=== PATIENT | female | born 1950 | race Caucasian/White ===

== ENCOUNTER → 2018-07-01 10:47 | Outpatient (BNVA) | payer MEDICARE, MEDICAID, SELFPAY | PROVIDERS: Referring Provider Orthopaedic Surgery; Visit Provider Student in an Organized Health Care Education/Training Program | DX: M17.12 Unilateral primary osteoarthritis, left knee (principal); M17.11 Unilateral primary osteoarthritis, right knee; M76.892 Other specified enthesopathies of left lower limb, excluding foot | CPT/HCPCS: 99203 ==

== ENCOUNTER 2018-08-13 08:04 | Outpatient (CLI) | payer MEDICARE, MEDICAID, SELFPAY ==
[2018-08-13 10:10] LABS: HCT 39.9 % (36.0-46.0); HGB 13.3 g/dL (12.0-15.5); Mean Corp. HGB Concentration 33.3 g/dL (32.0-36.0); Mean Corpuscular Hemoglobin 30.2 pg (27.0-33.0); Mean Corpuscular Volume 90.5 fL (80-95); Mean Platelet Volume 8.7 fL (8.0-11.0); Platelet Count 343 x1000/uL (130-400); RBC 4.41 m/cumm (4.00-5.20); RBC Distribution Width 13.6 % (11.7-14.6); White Blood Cell Count 5.26 k/cumm (4.4-10.8)
[2018-08-13 10:29] LABS: Anion Gap 9.8 mmol/L (3-11); BUN 14 mg/dL (7-18); CO2 28.2 mmol/L (21.0-32.0); CREATININE 0.72 mg/dL (0.55-1.02); Calcium 9.5 mg/dL (8.5-10.1); Chloride 102 mmol/L (98-107); Glucose 91 mg/dL (70-100); Potassium 4.4 mmol/L (3.5-5.1); Sodium 140 mmol/L (136-145)
== END 2018-08-13 08:24 ==
PROVIDERS: PCP Registered Nurse; Visit Provider Student in an Organized Health Care Education/Training Program
DX: M17.12 Unilateral primary osteoarthritis, left knee (principal); Z01.818 Encounter for other preprocedural examination; Z01.812 Encounter for preprocedural laboratory examination
CPT/HCPCS: 36415; 80048; 85027

== ENCOUNTER 2018-08-13 11:44 | Outpatient (CLI) | payer MEDICARE, SELFPAY ==
--- NOTE | 2018-08-13 09:06 | DI.RAD_ITS ---
SYMPTOMS/DIAGNOSIS: TKA SURG PLANNING LEG LENGTH STUDY: The left leg measures 82 cm. The right leg measures 82 cm. Note is made of degenerative changes in both knees, left more advanced than right.
--- NOTE | 2018-08-13 10:15 | W.PREOPHP ---
Date of service: 08/13/18 Assessment and Plan (1) Left knee DJD: Current visit: No Status: Acute Left total knee replacement. The details of surgery were discussed with patient as well as risks and pertinent today. All questions were answered. It was reiterated again at this visit that there are no guarantees that she will decide flexion that she wants out of this total knee replacement and that this is a procedure primarily done for pain. She appears understand this. Qualifiers: Osteoarthritis type: primary Qualified Code(s): M17.12 - Unilateral primary osteoarthritis, left knee History of Present Illness Chief Complaint: Left knee pain Narrative: Audra is a 68-year-old female who comes in today for a preop visit for her left total knee replacement. She is a very active person who enjoys yoga, and her biggest complaint with her knees, specifically her left knee, is her lack of motion. She is unable to flex her knee as far as the other side now. She also has pain with ambulation whenever she tries to get into specific yoga poses. Most of her knee pain is anterior whenever she is trying, or compromising positions. When she is ambulating most of the knee pain is medially. She has tried conservative treatments including anti-inflammatories and injections. Anti-inflammatories have not helped with her knee pain, and the injections are short-lived and helped mildly. X-rays of her left knee show severe arthritis especially in the patellofemoral joint also and almost complete loss of joint space of the medial compartment. She has bone spurs throughout including posteriorly. She does have a long discussion with Dr. Lee at her previous visit about the postoperative course, and the fact that this procedure is not done for flexibility of her pain. We are hopeful that she will get more flexion back after the procedure, but we cannot guarantee that her flexion will come back. She appears to have understood this in the previous visit, and is anxious to proceed now with a left total knee replacement. Pertinent Surgical Information Audra expresses a desire to not be on narcotics after this total knee replacement. She would like to try other means of pain control if possible. Positive history of Lyme disease. Patient denies history of hypertension, CVA, [place], angina, asthma, COPD, renal or liver disorders, hepatitis, bleeding disorders, diabetes, immune or thyroid disorders. No complications from anesthesia. Review of Systems Constitutional Denies fever(s) ENT Denies dizziness and Denies sore throat Cardiovascular Denies chest pain, Denies palpitations and Denies dyspnea Respiratory Denies cough and Denies dyspnea Gastrointestinal Denies abdominal pain, Denies melena, Denies hematochezia, Denies diarrhea, Denies nausea and Denies vomiting Genitourinary Denies hematuria and Denies dysuria Neurologic Denies dizziness Endocrine Denies palpitations PFS Medical History History of ganglion cyst (Acute) Hyperlipemia (Acute) Lyme disease (Chronic) Surgical History History of bunionectomy (Acute) History of recent maxillofacial surgery (Acute) History of tonsillectomy and adenoidectomy (Acute) History of uvulectomy (Acute) Status post endoscopic carpal tunnel release (Acute) Family History Father Hyperlipidemia Mother Cancer Brother Hypertension Sister Heart disease Social History Smoking/Tobacco Use Status: Never Drug use: Never Meds Home Medications Medication Instructions Recorded Confirmed Type calcium carbonate 600 mg calcium 600 mg PO DAILY tab 08/13/18 08/13/18 History (1,500 mg) tablet cholecalciferol (vitamin D3) 5,000 1,000 unit PO DAILY 08/13/18 08/13/18 History unit/mL oral drops glucosamine 250 kx-gjwht-egu 200 1 tab PO DAILY tab 08/13/18 08/13/18 History mg-D3 1,500 [id number]-V-jaomb-herbs tablet ibuprofen 200 mg PO ONCE PRN 08/13/18 08/13/18 History Allergies Allergy/AdvReac Type Severity Reaction Status Date / Time No Known Allergies Allergy Verified 08/13/18 09:[address] [facility] Head: normocephalic and atraumatic General nose exam: no nasal discharge Throat: posterior oropharynx normal Other: soft palate rises symmetrically, no erythema Eyes Conjunctivae: conjunctivae normal Sclera: sclerae normal Pupils: PERRL Resp Effort & Inspection: normal respiratory effort Auscultation: clear to auscultation bilaterally and no wheezes Cardio Rate: regular rate Rhythm: regular rhythm Heart Sounds: S1 normal, S2 normal and no murmurs GI Palpation: soft, no hepatosplenomegaly and nontender Auscultation: normal bowel sounds
--- NOTE | 2018-08-13 10:23 | HPE_ITS ---
Date of service: 08/13/18 Assessment and Plan (1) Left knee DJD: Current visit: No Status: Acute Left total knee replacement. The details of surgery were discussed with patient as well as risks and pertinent today. All questions were answered. It was reiterated again at this visit that there are no guarantees that she will decide flexion that she wants out of this total knee replacement and that this is a procedure primarily done for pain. She appears understand this. Qualifiers: Osteoarthritis type: primary Qualified Code(s): M17.12 - Unilateral primary osteoarthritis, left knee History of Present Illness Chief Complaint: Left knee pain Narrative: Audra is a 68-year-old female who comes in today for a preop visit for her left total knee replacement. She is a very active person who enjoys yoga, and her biggest complaint with her knees, specifically her left knee, is her lack of motion. She is unable to flex her knee as far as the other side now. She also has pain with ambulation whenever she tries to get into specific yoga poses. Most of her knee pain is anterior whenever she is trying, or compromising positions. When she is ambulating most of the knee pain is medially. She has tried conservative treatments including anti-inflammatories and injections. Anti-inflammatories have not helped with her knee pain, and the injections are short-lived and helped mildly. X-rays of her left knee show severe arthritis especially in the patellofemoral joint also and almost complete loss of joint space of the medial compartment. She has bone spurs throughout including posteriorly. She does have a long discussion with Dr. Lee at her previous visit about the postoperative course, and the fact that this procedure is not done for flexibility of her pain. We are hopeful that she will get more flexion back after the procedure, but we cannot guarantee that her flexion will come back. She appears to have understood this in the previous visit, and is anxious to proceed now with a left total knee replacement. Pertinent Surgical Information Audra expresses a desire to not be on narcotics after this total knee replacement. She would like to try other means of pain control if possible. Positive history of Lyme disease. Patient denies history of hypertension, CVA, [place], angina, asthma, COPD, renal or liver disorders, hepatitis, bleeding disorders, diabetes, immune or thyroid disorders. No complications from anesthesia. Review of Systems Constitutional Denies fever(s) ENT Denies dizziness and Denies sore throat Cardiovascular Denies chest pain, Denies palpitations and Denies dyspnea Respiratory Denies cough and Denies dyspnea Gastrointestinal Denies abdominal pain, Denies melena, Denies hematochezia, Denies diarrhea, Denies nausea and Denies vomiting Genitourinary Denies hematuria and Denies dysuria Neurologic Denies dizziness Endocrine Denies palpitations PFS Medical History History of ganglion cyst (Acute) Hyperlipemia (Acute) Lyme disease (Chronic) Surgical History History of bunionectomy (Acute) History of recent maxillofacial surgery (Acute) History of tonsillectomy and adenoidectomy (Acute) History of uvulectomy (Acute) Status post endoscopic carpal tunnel release (Acute) Family History Father Hyperlipidemia Mother Cancer Brother Hypertension Sister Heart disease Social History Smoking/Tobacco Use Status: Never Drug use: Never Meds Home Medications Medication Instructions Recorded Confirmed Type calcium carbonate 600 mg calcium 600 mg PO DAILY tab 08/13/18 08/13/18 History (1,500 mg) tablet cholecalciferol (vitamin D3) 5,000 1,000 unit PO DAILY 08/13/18 08/13/18 History unit/mL oral drops glucosamine 250 dh-wllan-njj 200 1 tab PO DAILY tab 08/13/18 08/13/18 History mg-D3 1,500 rewo-R-waevh-herbs tablet ibuprofen 200 mg PO ONCE PRN 08/13/18 08/13/18 History Allergies Allergy/AdvReac Type Severity Reaction Status Date / Time No Known Allergies Allergy Verified 08/13/18 09:07 Exam [facility] Head: normocephalic and atraumatic General nose exam: no nasal discharge Throat: posterior oropharynx normal Other: soft palate rises symmetrically, no erythema Eyes Conjunctivae: conjunctivae normal Sclera: sclerae normal Pupils: PERRL Resp Effort & Inspection: normal respiratory effort Auscultation: clear to auscultation bilaterally and no wheezes Cardio Rate: regular rate Rhythm: regular rhythm Heart Sounds: S1 normal, S2 normal and no murmurs GI Palpation: soft, no hepatosplenomegaly and nontender Auscultation: normal bowel sounds
== END 2018-08-13 12:04 ==
PROVIDERS: PCP Registered Nurse; Visit Provider Physician Assistant
DX: M17.12 Unilateral primary osteoarthritis, left knee (principal); Z01.818 Encounter for other preprocedural examination; Z01.812 Encounter for preprocedural laboratory examination
CPT/HCPCS: 36415; 80048; 85027; NC; 77073

== ENCOUNTER → 2018-08-18 08:07 | Outpatient (BNVA) | payer MEDICARE, MEDICAID, SELFPAY | PROVIDERS: PCP Registered Nurse; Visit Provider Student in an Organized Health Care Education/Training Program | DX: R69 Illness, unspecified (principal) ==

== ENCOUNTER 2018-08-18 09:27 | Inpatient (IN) | payer MEDICARE, SELFPAY ==
[2018-08-13 08:31] VITALS: BP 129/82; PULSE 92; RESP 16; TEMP 37.4; O2SAT 96
[2018-08-13 08:38] VITALS: BP 129/82; PULSE 92; RESP 16; TEMP 37.4; O2SAT 96
--- NOTE | 2018-08-13 09:16 | NUR.NOTE ---
Nursing Note: 08/13/18 Pre op visit for Left Total Knee. Care Management text paged without response- pt unable to see care management this morning as part of pre-op visit. Spoke with Darío Solitario CRNA, questioned if pt needed evaluation from [facility] related to previous sleep apnea surgery. Anesthesia declined the need to see pt.
[2018-08-18] VITALS (13 sets, daily range): BP systolic 96–125; BP diastolic 61–83; PULSE 57–84; RESP 10–18; TEMP 36–36.9; O2SAT 94–100
[2018-08-18] MEDS: Gabapentin 300 MG CAP PO (09:57)
[2018-08-18] MEDS: Acetaminophen 500 MG TAB 1000 MG PO ×3 (09:57→19:52)
[2018-08-18] MEDS: Celecoxib 200 MG CAP 400 MG PO (09:57)
[2018-08-18] MEDS: Lactated Ringers 1,000 ML 80 ML IV ×3 (10:00→23:22)
[2018-08-18] MEDS: Bupivacaine 0.25% Pres-Free 30 ML VIAL ×2 (10:18→12:30)
[2018-08-18] MEDS: Bupivacaine LIPOSOME/PF 133 MG/10 ML VIAL IJ ×2 (10:18→12:30)
[2018-08-18] MEDS: ceFAZolin 2 GM/50 ML BAG IVPB (10:59)
[2018-08-18] MEDS: Ketorolac 30 MG/ML VIAL (12:30)
[2018-08-18] MEDS: Normal Saline 20 ML VIAL (12:30)
--- NOTE | 2018-08-18 14:22 | ROE_ITS ---
Date of service: 08/18/18 Time of Service: 14:17 Operative Note DATE OF PROCEDURE: 08/18/18 PRE-OP DIAGNOSIS: Left knee osteoarthritis POST-OP DIAGNOSIS: same PROCEDURE: Left Total Knee Replacement SURGEON: Edmar Lee PHARMACY DATA ANALYST: Lydia Hernández ANESTHESIA: regional and spinal ESTIMATED BLOOD LOSS: 200 PATHOLOGY: none sent TOURNIQUET TIME: 31 COMPLICATIONS: None Patient was transported to: PACU Patient's condition: stable Implants: 1. Depuy Attune Posterior Stabilized Femoral Component, Size 5 2. Depuy Attune Fixed Platform Tibial Component, Size 3 3. Depuy Attune 5 x 8 mm fixed, Stabilized Poly 4. Depuy Attune Patellar Component, Size 32 mm Indications: I have seen Audra in clinic for symptoms of left knee arthritis, confirmed with radiographic findings. She has exhausted nonoperative methods and was having significant limitations in daily function and desired better function and less pain. I discussed the technical details of a knee replacement. I explained the risks of the procedure to include, but not limited to, bleeding, infection, pain, stiffness, fracture, damage to nerves and vessels, damage to muscles and tendons, loosening, need for repeat procedure, blood clot and cardiopulmonary demise. Despite these risks, she elected to proceed. Findings: There was significant signs of arthritis throughout the knee. There were osteophytes over the medial compartment both tibia and femur and a large area of cartilage loss within the central portion of the patella. Procedure Description: Audra was greeted in the preoperative holding area where the correct side was identified and marked. The consent was reviewed with the patient and signed. The history and physical was updated. All questions were answered. Preoperative mediacations were administered: Acetaminophen 1000mg, Celebrex 400mg, Gabapentin 300mg, and Oxycontin 10mg. An adductor canal block was then administered by the anesthesia team in the PACU. Audra was taken back to the operating room. A spinal anesthestic was then administered. The patient was placed into the supine position on the operating room table. A nonsterile tourniquet was placed high onto the leg but only used for cementing. Posts were placed for positioning during the procedure. All bony prominences were well padded. Prophylactic antibiotics in the form of cefazolin were administered. 1g of Tranxemic Acid was given intravenously within 30 minutes of incision. The left leg was then prepped with Chloraprep and draped in a standard fashion with impervious stockinette and extremity drape with Iodine impregnated skin protection. A timeout to confirm correct identity, side and site, procedure, allergies, anesthesia, and medical concerns was performed. With the knee in some flexion, a midline incision was made overlying the knee. Full thickness skin flaps were raised once the extensor mechanism was encountered. These were raised medially and laterally. Any bleeding was controlled with electrocautery. Once the extensor mechanism was fully exposed, a medial parapatellar arthrotomy was performed in a flexed position. All bleeding from the arthrotomy and the geniculate arteries was coagulated. A medial subperiosteal peel was performed with electrocautery to the midcoronal plane. The fat pad was removed while keeping the patellar tendon protected. The anterior distal femur synovium was removed for later visualization. The ACL and PCL were resected and the anterior horn of the lateral meniscus was transected. The knee was then flexed with the patella everted. Large osteophytes from the tibia were removed. Large osteophytes from the femur were removed. Using a step drill, and based on preoperative templating, the femoral canal was entered. This was done with a step drill without any difficulty. The intramedullary distal femoral cut guide was inserted, set to a 5 degree valgus cut and 9mm cut thickness. The distal femoral cut guide was then held in position and pinned. With the soft tissues protected, the distal cut was performed. This was passed over a few times to ensure a planar cut. I then turned attention to the tibia. The extramedullary guide was placed onto the leg. The distal aspect was slid medial to adjust for position of center of ankle and stay in line with shaft of the tibia. Approximately 3-5 degrees of posterior slope was kept in the proximal cutting guide. The center of the guide was aligned with the PCL. The stylus was used to assess cut thickness. The medial side, most involved side, was set for a 4mm cut. This was then held in position and pinned into place with 2 additional pins and a cross pin for stability. The medial and lateral collateral ligaments were protected and the cut was performed. With this completed, it was assessed and noted to be of appropriate dimensions. The guide was removed. A spacer block was inserted and the knee was brought into extension. The 7 mm spacer block provided full extension, without hyperextension and with stability of both the medial and lateral collateral ligaments was assessed. The pins from the femur and the tibia were then removed. The distal femur was then sized. The anterior stylus was placed onto the lateral ridge of the anterior femur. This indicated a size 5 femur. The external rotation of the guide was adjusted to 3 degrees to match the epicondylar axis, perpendicular to Josue?s line. The 4-in-1 cutting guide was the placed. The posterior medial femur cut was evaluated and appeared of good thickness. The spacer block was inserted underneath the cutting guide and stability was confirmed in 90 degrees of flexion. An [place] wing was used to confirm appropriate position of the anterior cut to avoid notching. This cutting guide was ensured to be flush on the cut surface and then pinned into place with headed pins. While protecting the soft tissues, quad tendon, and collateral ligaments, the anterior and posterior cuts were performed with a saw. The central two pins were removed and the posterior and anterior chamfers were cut next. The notch-cutting guide was placed. This was pinned to lateralize the femoral component as much as possible while keeping it flush on the cut surface. This was then pinned into position. A reciprocating saw was used to make the notch cut. A rasp smoothed the cut surfaces. A trial posterior stabilized femoral component was then inserted, impacted down to the cut surfaces, and the lug holes were drilled. A provisional trial tibial component was placed and the knee was brought through range of motion. The polyethylene was trialed until there was good flexion and extension with excellent stability to the medial and lateral collaterals. An 8 mm polyethylene appeared to have the best fit allowing for excellent flexion and extension but also having varus and valgus laxity of less than 2 mm. The patella was tracking without thumbs. The tibial cut surface was fully exposed. The medial and lateral menisci were r emoved. The tibia was then sized as a 3. The tibia had been previously marked during trialing to correspond to the center of the tibial component to help with rotation. The trial was aligned to this lydia, approximately rotated to the medial 1/3rd of the tibial tubercle. The trial was pinned into place. The tibia was prepared with a reamer and a keel punch. The knee was then brought into extension and the patella was measured as 25 mm. Using the patellar clamp and cut guide, this was resected to a flat surface with at least 13mm of thickness remaining. The size 32 patella fit the best. This was oriented and then clamped into position. The lugs were drilled. The trial components were removed. The final components, except for the polyethylene were opened on the back table. The periosteal and capsular tissues, especially posteriorly, around the knee were then systematically injected with a periarticular cocktail consisting of 50cc 0.25% Marcaine, 30mg Ketorolac, 20cc of Exparal and 50cc of injectable saline. The tourniquet was then inflated to 275mmHg. The knee was thoroughly irrigated with a pulse lavage and dried. On the back table, with the implants opened, the cement was mixed. 2 batches of antibiotic laden cement were prepared with vacuum assistance. After the cement was ready a small amount was placed on to the back side of the tibial component at the keel. A small amount was placed onto the posterior flange of the femur. Cement was manual pressurized and impregnated into the cut surface of the tibia. The tibial component was then inserted into the cut surface and impacted into position. Excess cement was removed and the component was reimpacted. Again, excess cement was removed and our attention was then turned to the femur. The femoral cut surface was once again dried and cement was manually impacted into the cut surface. The femoral component was lined with the lug holes and impacted. Excess cement was removed. It was ensured to be down against the cut surface. The trial polyethylene was then inserted and the leg was brought out into full extension for the duration of the cement curing process, approximately 15min. Cement was lastly manually impacted into the cut surface of the patella and the patellar button was clamped into position and held. During this process attention was turned to the gutters of the knee and for all interfaces for any excess cement. After the cement had finally cured, approximately 15min, the clamp was removed from the patella and the knee was taken through range of motion. A size 8 mm polyethylene component provided the best range of motion and stability with less than 2mm gapping with medial and lateral stress and full extension without significant hyperextension. The patella was tracking with a no-thumbs technique. The trial poly was removed and once again the knee was checked for any loose, excess, or errant cement. The poly component was then inserted and impacted into position after cleaning and drying the tibial tray. The capsule was then reapproximated with a No. 1 Vicryl at multiple locations. The capsule was finally closed with a No. 2 Stratafix, barbed suture. The tourniquet was then released and the arthrotomy appeared watertight without significant bleeding. The second dosing of 1g TXA was started. Deep tissues were then reapproximated with 0 Vicryl and 2-0 Vicryl. The skin was closed with a running 3-0 Monocryl in a subcuticular fashion. This was reinforced with skin glue. A Mepilex silver dressing was applied along with a [id number] MINDY wrap. A CryoCuff was applied. Audra was transferred to the hospital bed without difficulty an suffering no apparent complication. Audra has a good prognosis. Physical therapy will start today and without restrictions, weight-bearing as tolerated. Aspirin 81mg BID will be used for DVT prophylaxis.
--- NOTE | 2018-08-18 17:00 | PT.INIE ---
Date of service: 08/18/18 Time of Service: 15:07 PT Notes Inpatient Physical Therapy Evaluation Date: 08/18/2018 Referring Doctor: Edmar Lee MD PT Orders: PT CONSULT: S/P L TKA Precautions: Fall. Standard. WBAT on L. Patient Profile/Admitting Diagnosis: Patient is a 68-year-old female with primary osteoarthritis of L knee S/P L total knee arthroplasty on postoperative day 0. PMHX: Medical History History of ganglion cyst (Acute) Hyperlipemia (Acute) Lyme disease (Chronic) Surgical History History of unionectomy (Acute) History of recent maxillofacial surgery (Acute) History of tonsillectomy and adenoidectomy (Acute) History of uvulectomy (Acute) Status post endoscopic carpal tunnel release (Acut Social History/Home Situation: Patient lives in a house in [place], [place] with significant other with one step to enter, no rails but with a flight of stairs to get to the second floor of the house, rail on the left going up. She states that she can sleep on the first floor if mobility and safety is going to be an issue. 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 She was independent with all aspects of ADLs without the need for an assistive ambulatory device nor adaptive equipment. She still drives. Current Functional Limitations: Need for assistance with all transfer and ambulation task performance using a FWW. Equipment Owned/DME: None Subjective: Patient reports that her legs feel funny and that it feels weird on her non operated side. Her R LE side feels feels surprisingly stiffer than her L LE. She states she does not feel stable doing those short steps with walker and hopes that tomorrow they would feel a lot stable. She denies dizziness, chest pain, and headache. She hopes to go home as soon as possible to be able to eventually do her gardening work. Objective: General Observation: Patient seen resting in bed. MINDY wraps on left LE. Box catheter in place. Anti-DVT pump on R LE. Mental Status: Alert and oriented x4 Pain: 0/10. Patient reported mild ache with weight bearing. ROM: Right Upper Extremity: Shoulder Flexion WFL. Shoulder abduction WFL. Elbow flexion WFL. Wrist flexion WFL. Functional opening and closing of hand WFL. Left Upper Extremity: Shoulder Flexion WFL. Shoulder abduction WFL. Elbow flexion WFL. Wrist flexion WFL. Functional opening and closing of hand WFL. Right Lower Extremity: Hip flexion WFL. Hip abduction WFL. Knee flexion WFL. Knee extension -10 degrees. Ankle dorsiflexion WFL. Ankle plantarflexion WFL. Left Lower Extremity: Hip flexion 0 to 80 degrees. Hip abduction WFL. Knee flexion 0-100 degrees with active range limited by MINDY wraps and mild discomfort. Ankle dorsiflexion WFL. Ankle plantarflexion WFL. Strength: Right Upper Extremity: Shoulder flexors 5/5. Shoulder abductors 5/5. Elbow flexors 5/5. Elbow extensors 5/5. Graphics Production Specialist strong. Left Upper Extremity: Shoulder flexors 5/5. Shoulder abductors 5/5. Elbow flexors 5/5. Elbow extensors 5/5. Graphics Production Specialist strong. Right Lower Extremity: Hip flexors 3-/5. Hip abductors 5/5. Knee flexors 3-/5. Knee extensors 3-/5. Ankle dorsiflexors 5/5. Ankle plantarflexors 5/5. Left Lower Extremity:Hip flexors 4/5. Hip abductors 5/5. Knee flexors 4/5. Knee extensors 4/5. Ankle dorsiflexors 5/5. Ankle plantarflexors 5/5. Sensation: Patient reports diminished sensation to bilateral lower extremities as to as to pressure Bed Mobility/Transfers: Rolling SBA Supine to sit SBA with HOB flat Sit to supine SBA with HOB flat Sit to stand minimal assist with verbal cueing for hand placement and tactile cueing to bilateral knees for stability Stand to sit minimal assist with verbal cueing for hand placement and tactile cueing to bilateral knees for stability Bed to chair minimal assist with verbal cueing for hand placement and tactile cueing to bilateral knees for stability Chair to bed minimal assist with verbal cueing for hand placement and tactile cueing to bilateral knees for stability Gait: Patient tolerated short distance ambulation with 6 steps forward and 6 6 steps back with poor bilateral quadriceps activation noted with left LE being more affected than the right LE. Balance: Static Sitting: Good Dynamic Sitting: Good Static Standing: Fair Dynamic Standing: Fair Special Tests: Mobility Limitations Standardized Measure [facility] 6 clicks Basic Mobility Inpatient Short Form: Raw Score: 13 CMS Score: 65% deficit Informed Consent/Education: Patient instructed in purpose of PT consult and plan of care. Patient was educated and trained on hourly performance of bed/seated level exercises in order to prevent clot formation, maintain range of motion, and facilitate return of sensation to bilateral LE: Ankle pumps x 30, quadriceps setting with 5-second hold x10, heel slides to tolerance with 5-second hold at end range x10. Assessment: 68-year-old female with primary unilateral osteoarthritis status post left knee total arthroplasty. Patient presents with clinical signs and symptoms consistent with current/admitting diagnoses and post reparative status that have resulted to mobility limitations, gait instability, generalized weakness, and impairment of motor control as demonstrated by the following impairment level findings: 1. Decreased strength to L LE major muscle groups 2. Impaired sitting/standing balance 3. Impaired activity tolerance 4. Limitation of joint range of motion in left hip and knee joints 5. Decreased bilateral quadriceps activation due to post operative and post anesthesia effects Impairments are contributing to the following functional limitations: 1. Dependent bed mobility skills 2. Increased dependence with transfers 3. Inability to safely ambulate without assistive device and physical assistance 4. Increase completion time for mobility ADL performance 5. Increased fall risk 6. Inability to negotiate steps alone safely Patient is assessed as a 58795 moderate complexity complexity based on the following: History: 68-year-old cognitively intact female status post left total knee arthroplasty with independent premorbid level for all ADL performance Examination: Underlying impairments and functional limitations as noted above Presentation:Evolving Decision Makin moderate complexity Goals: Goals X1 week 1. Supine-Sit independent 2. Sit-Supine independent 3. Sit-Stand independent 4. Stand-Sit independent 5. Bed-Chair independent 6. Chair-Bed independent 7. Independent gait on level surface with use of least restrictive device for at least 300 feet without report of pain nor dyspnea 8. Independent stair negotiation while holding onto bilateral rails for at least 10 steps without report of pain nor dyspnea 9. Independent with home exercise program 10. Good static and dynamic standing balance/tolerance Plan of Care/Treatment Plan: 1-2x/day, 7 days/week x 1 week. Plan of care has been reviewed with the GAS PIPE LAYER providing the service under Physical Therapy direction. Initiate Physical Therapy intervention for strengthening, bed mobility, transfers, gait, stairs, balance training, use of assistive device. DISCHARGE RECOMMENDATIONS: Patient requires a front wheeled walker at discharge destination for independent mobility ADL performance and fall reduction. Patient may benefit from home health PT services in order to progress mobility level using least restrictive assistive ambulatory device/using no device, assess home safety, identify additional equipment needs, and establish a functional maintenance program that will increase ability of patient to remain at home. TREATMENT CODE/TIME: 9716 2 x 30 minutes, 9753 0 x 60 minutes beginning at 15:07 PM. Thank you very much for this referral. Georgiana Haskins PT, DPT, CLT [facility]
[2018-08-18] MEDS: Aspirin E.C. 325 MG TABEC 81 MG PO (19:52)
[2018-08-18] MEDS: Celecoxib 100 MG CAP 200 MG PO (19:52)
[2018-08-19] MEDS: Normal Saline Flush 10 ML SYR IV (01:23)
[2018-08-19 03:33] VITALS: BP 102/56; PULSE 74; RESP 16; TEMP 36.7; O2SAT 96
[2018-08-19] MEDS: traMADol 50 MG TAB PO (05:54)
--- NOTE | 2018-08-19 07:01 | IN_ITS ---
Date of service: 08/18/18 Time of Service: 15:07 PT Notes Inpatient Physical Therapy Evaluation Date: 08/18/2018 Referring Doctor: Edmar Lee MD PT Orders: PT CONSULT: S/P L TKA Precautions: Fall. Standard. WBAT on L. Patient Profile/Admitting Diagnosis: Patient is a 68-year-old female with primary osteoarthritis of L knee S/P L total knee arthroplasty on postoperative day 0. PMHX: Medical History History of ganglion cyst (Acute) Hyperlipemia (Acute) Lyme disease (Chronic) Surgical History History of unionectomy (Acute) History of recent maxillofacial surgery (Acute) History of tonsillectomy and adenoidectomy (Acute) History of uvulectomy (Acute) Status post endoscopic carpal tunnel release (Acut Social History/Home Situation: Patient lives in a house in [place], [place] with significant other with one step to enter, no rails but with a flight of stairs to get to the second floor of the house, rail on the left going up. She states that she can sleep on the first floor if mobility and safety is going to be an issue. 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 She was independent with all aspects of ADLs without the need for an assistive ambulatory device nor adaptive equipment. She still drives. Current Functional Limitations: Need for assistance with all transfer and ambulation task performance using a FWW. Equipment Owned/DME: None Subjective: Patient reports that her legs feel funny and that it feels weird on her non operated side. Her R LE side feels feels surprisingly stiffer than her L LE. She states she does not feel stable doing those short steps with walker and hopes that tomorrow they would feel a lot stable. She denies dizziness, chest pain, and headache. She hopes to go home as soon as possible to be able to eventually do her gardening work. Objective: General Observation: Patient seen resting in bed. MINDY wraps on left LE. Box catheter in place. Anti-DVT pump on R LE. Mental Status: Alert and oriented x4 Pain: 0/10. Patient reported mild ache with weight bearing. ROM: Right Upper Extremity: Shoulder Flexion WFL. Shoulder abduction WFL. Elbow flexion WFL. Wrist flexion WFL. Functional opening and closing of hand WFL. Left Upper Extremity: Shoulder Flexion WFL. Shoulder abduction WFL. Elbow flexion WFL. Wrist flexion WFL. Functional opening and closing of hand WFL. Right Lower Extremity: Hip flexion WFL. Hip abduction WFL. Knee flexion WFL. Knee extension -10 degrees. Ankle dorsiflexion WFL. Ankle plantarflexion WFL. Left Lower Extremity: Hip flexion 0 to 80 degrees. Hip abduction WFL. Knee flexion 0-100 degrees with active range limited by MINDY wraps and mild di scomfort. Ankle dorsiflexion WFL. Ankle plantarflexion WFL. Strength: Right Upper Extremity: Shoulder flexors 5/5. Shoulder abductors 5/5. Elbow flexors 5/5. Elbow extensors 5/5. Dry Pan Operator strong. Left Upper Extremity: Shoulder flexors 5/5. Shoulder abductors 5/5. Elbow flexors 5/5. Elbow extensors 5/5. Dry Pan Operator strong. Right Lower Extremity: Hip flexors 3-/5. Hip abductors 5/5. Knee flexors 3-/5. Knee extensors 3-/5. Ankle dorsiflexors 5/5. Ankle plantarflexors 5/5. Left Lower Extremity:Hip flexors 4/5. Hip abductors 5/5. Knee flexors 4/5. Knee extensors 4/5. Ankle dorsiflexors 5/5. Ankle plantarflexors 5/5. Sensation: Patient reports diminished sensation to bilateral lower extremities as to as to pressure Bed Mobility/Transfers: Rolling SBA Supine to sit SBA with HOB flat Sit to supine SBA with HOB flat Sit to stand minimal assist with verbal cueing for hand placement and tactile cueing to bilateral knees for stability Stand to sit minimal assist with verbal cueing for hand placement and tactile cueing to bilateral knees for stability Bed to chair minimal assist with verbal cueing for hand placement and tactile cueing to bilateral knees for stability Chair to bed minimal assist with verbal cueing for hand placement and tactile cueing to bilateral knees for stability Gait: Patient tolerated short distance ambulation with 6 steps forward and 6 6 steps back with poor bilateral quadriceps activation noted with left LE being more affected than the right LE. Balance: Static Sitting: Good Dynamic Sitting: Good Static Standing: Fair Dynamic Standing: Fair Special Tests: Mobility Limitations Standardized Measure [facility] 6 clicks Basic Mobility Inpatient Short Form: Raw Score: 13 CMS Score: 65% deficit Informed Consent/Education: Patient instructed in purpose of PT consult and plan of care. Patient was educated and trained on hourly performance of bed/seated level exercises in order to prevent clot formation, maintain range of motion, and facilitate return of sensation to bilateral LE: Ankle pumps x 30, quadriceps setting with 5-second hold x10, heel slides to tolerance with 5- second hold at end range x10. Assessment: 68-year-old female with primary unilateral osteoarthritis status post left knee total arthroplasty. Patient presents with clinical signs and symptoms consistent with current/admitting diagnoses and post reparative status that have resulted to mobility limitations, gait instability, generalized weakness, and impairment of motor control as demonstrated by the following impairment level findings: 1. Decreased strength to L LE major muscle groups 2. Impaired sitting/standing balance 3. Impaired activity tolerance 4. Limitation of joint range of motion in left hip and knee joints 5. Decreased bilateral quadriceps activation due to post operative and post anesthesia effects Impairments are contributing to the following functional limitations: 1. Dependent bed mobility skills 2. Increased dependence with transfers 3. Inability to safely ambulate without assistive device and physical assistance 4. Increase completion time for mobility ADL performance 5. Increased fall risk 6. Inability to negotiate steps alone safely Patient is assessed as a 83882 moderate complexity complexity based on the following: History: 68-year-old cognitively intact female status post left total knee arthroplasty with independent premorbid level for all ADL performance Examination: Underlying impairments and functional limitations as noted above Presentation:Evolving Decision Makin moderate complexity Goals: Goals X1 week 1. Supine-Sit independent 2. Sit-Supine independent 3. Sit-Stand independent 4. Stand-Sit independent 5. Bed-Chair independent 6. Chair-Bed independent 7. Independent gait on level surface with use of least restrictive device for at least 300 feet without report of pain nor dyspnea 8. Independent stair negotiation while holding onto bilateral rails for at least 10 steps without report of pain nor dyspnea 9. Independent with home exercise program 10. Good static and dynamic standing balance/tolerance Plan of Care/Treatment Plan: 1-2x/day, 7 days/week x 1 week. Plan of care has been reviewed with the GUIDE SETTER providing the service under Physical Therapy direction. Initiate Physical Therapy intervention for strengthening, bed mobility, transfers, gait, stairs, balance training, use of assistive device. DISCHARGE RECOMMENDATIONS: Patient requires a front wheeled walker at discharge destination for independent mobility ADL performance and fall reduction. Patient may benefit from home health PT services in order to progress mobility level using least restrictive assistive ambulatory device/using no device, assess home safety, identify additional equipment needs, and establish a functional maintenance program that will increase ability of patient to remain at home. TREATMENT CODE/TIME: 9716 2 x 30 minutes, 9753 0 x 60 minutes beginning at 15:07 PM. Thank you very much for this referral. Georgiana Haskins PT, DPT, CLT [facility]
[2018-08-19 07:20] VITALS: BP 125/78; PULSE 78; RESP 18; TEMP 36.7; O2SAT 97
[2018-08-19] MEDS: Glucosamine/Chondroitin CAP 1 CAP PO (08:36)
[2018-08-19] MEDS: Acetaminophen 500 MG TAB 1000 MG PO ×2 (08:36→13:14)
[2018-08-19] MEDS: Celecoxib 100 MG CAP 200 MG PO (08:36)
[2018-08-19] MEDS: Aspirin E.C. 81 MG TABEC PO (08:37)
[2018-08-19] MEDS: Cholecalciferol (Vitamin D3) 1,000 UNIT TAB 1000 UNITS PO (08:37)
[2018-08-19] MEDS: Calcium Carbonate 1.5 GM TAB PO (08:37)
[2018-08-19 09:36] VITALS: RESP 16
[2018-08-19 11:15] VITALS: BP 100/65; PULSE 66; RESP 14; TEMP 37.1; O2SAT 97
--- NOTE | 2018-08-19 11:48 | PDOC.CMIN ---
Care Management Initial Assess REASON FOR HOSPITALIZATION:: Left Knee DJD PAST MEDICAL HISTORY/PAST SURGICAL HISTORY:: Ganglion cyst, hyperlipidemia, lyme disease, arthroscopic knee surgery, bunionectomy, maxillofacial sugery, tonsillectomy and adenoidectomy as a child, uvelectomy, endoscopic carpal tunnel release. PREVIOUS FUNCTIONAL STATUS/SOCIAL/FAMILY SUPPORTS:: Audra resides in [place] with her partner Bebeto. She reports relocating to [place] fifteen years ago. 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 She reports being born in [place] and moving to [place] when she was [age]. She then spent twenty five years in [place], raising her children. She reports her natural support system is limited to Bebeto but she keeps in touch with her scattered family. She shares that most of her life she has not lived close to family members. Audra reports being quite independent at baseline and doing daily yoga, gardening, woodwork and yardwork. She reports having a wood fire and processing her own firewood slowly until her and Bebeto accumulate eight cords for winter. Audra shares that Bebeto had a tough year last year and developed chronic lung disease and then lyme disease from two different tick bites; one in the spring and one in the fall. She reports he tires much easier but remains independent with ADLs at this time. Audra is independent at baseline as well. CURRENT FUNCTIONAL STATUS:: Audra was lying on her side in bed, she was pleasant in interaction and forthcoming with information. She shared gratitude for her care and reported anticipating that she would return home this afternoon. ADVANCE DIRECTIVES:: None on file. Has patient been provided with information about the portal?: Yes Did the patient sign up for the portal?: No CODE STATUS:: Full Code INSURANCE COVERAGE / FINANCIAL ISSUES:: Medicare. Medicaid CURRENT HOME/COMMUNITY SERVICES/EQUIPMENT:: No current services or equipment. PRIMARY CARE PHYSICIAN:: Anika Oquendo POTENTIAL DISCHARGE NEEDS:: Follow up appointment with Dr. Lee, REI coordination. PATIENT/FAMILY EDUCATION NEEDS:: Review of discharge instructions, discuss Ask Me Three. ANTICIPATED BARRIERS TO DISCHARGE:: None identified. TRANSPORTATION:: Via private vehicle with Bebeto. PLAN:: Audra will return home when ready per MD. She will follow up with Dr. Lee and her plan of care as prescribed including activity restrictions and medication recommendations. [facility] filled prescription for FWW through [facility] per Audra's preference. Audra will transport home via private vehicle with
--- NOTE | 2018-08-19 11:54 | PT.INTREAT ---
Date of service: 08/19/18 Time of Service: 11:55 PT Notes Inpatient Physical Therapy Treatment Note [facility] Date: 08/19/2018 PRECAUTIONS: Fall, WBAT L SUBJECTIVE: Audra states that she is feeling good this morning, she has been performing her exercises independently in bed. OBJECTIVE: PAIN: Patient complained of left knee pain with heel slide exercise BED MOBILITY/TRANSFERS Supine-sit: I with HOB flat Sit-supine: I with HOB flat Sit-stand: SBA in a.m.; S in p.m. Stand-sit: SBA in a.m.; S in p.m. GAIT Assistive Device: FWW Weight bearing: WBAT L Assist: SBA Distance: 100' x2 in a.m.; 300' in p.m. Deviation: Step through gait pattern utilized, knee buckling x4, increased ludin THEREX: Patient completed a lower extremity strengthening and stabilization program, as per flow sheet. STAIRS: Up/down 6x4 using 1 rail/SPC and a step to pattern with supervision ASSESSMENT: Patient tolerated session well with minimal complaint of left knee pain with ther ex. Patient was able to tolerate a progression in gait distance with FWW support and SBA. Patient demonstrates increased ludin utilizing a step through gait pattern although has several instances of knee buckling. Patient would benefit from continued gait and transfer training as well as strengthening for improved mobility and improved ability to perform daily functional tasks at a more independent level. PLAN: Continue with PTs POC TREATMENT CODE/TIME: Session 1: 30 minutes; 75894, [id number] Session 2: 20 minutes; 39225
--- NOTE | 2018-08-19 12:22 | PDOC.CMDIS ---
LACE Index Scoring Tool - Questions: Length of Stay (in days): 1 Acuity (Admit via E.D.?): No E.D. Visits: 0 - Answers: Total Score: 1 Risk of Readmission: Low Risk Care Management Discharge Reason for Hospitalization: Left Knee DJD Discharge Plan: Audra will return home when ready per MD. She will follow up with Dr. Lee and her plan of care as prescribed including activity restrictions and medication recommendations. [facility] filled prescription for FWW through [facility] per Audra's preference. Audra will transport home via private vehicle with Bebeto. Patient/Family Education Needs: Review of discharge instructions, discuss Ask Me Three. Services Needed at Discharge: DME Agency ([facility])
--- NOTE | 2018-08-19 12:25 | CMDISCH_ITS ---
LACE Index Scoring Tool - Questions: Length of Stay (in days): 1 Acuity (Admit via E.D.?): No E.D. Visits: 0 - Answers: Total Score: 1 Risk of Readmission: Low Risk Care Management Discharge Reason for Hospitalization: Left Knee DJD Discharge Plan: Audra will return home when ready per MD. She will follow up with Dr. Lee and her plan of care as prescribed including activity restrictions and medication recommendations. CM filled prescription for FWW through [facility] per Audra's preference. Audra will transport home via private vehicle with Bebeto. Patient/Family Education Needs: Review of discharge instructions, discuss Ask Me Three. Services Needed at Discharge: DME Agency ([facility])
--- NOTE | 2018-08-19 12:55 | W.PM.DS.N ---
Date of service: 08/19/18 Time of Service: 12:55 DS: Diagnosis Discharge Diagnosis (1) Left knee DJD: Status: Acute Discharge Plan Disposition Patient Disposition: HOME Condition: Good Discharge Details Reason For Visit: LEFT KNEE DJD Admit Date/Time: 08/18/18 09:27 Admit Provider: Edmar Lee Attending Provider: Edmar Lee Primary Care Provider: [facility] Course Hospital Course: Patient was admitted to the medical/surgical floor following the procedure. It was tolerated well without any notable medical, surgical, or anesthetic complications. Mobilization began postoperatively. The castro catheter was removed and voiding spontaneously. Vitals were stable. Physical therapy worked with the patient and was cleared for discharge home. No acute medical issues. Home Meds and New Rx's Prescriptions: New celecoxib 200 mg capsule 200 mg PO BID PRN (Reason: pain) Qty: 60 RF: 1 aspirin 81 mg tablet,delayed release (DR/EC) 81 mg PO BID Qty: 60 RF: 0 acetaminophen 500 mg tablet 1,000 mg PO Q8H PRN (Reason: pain) Qty: 90 RF: 3 tramadol 50 mg tablet 50 mg PO Q6H PRN (Reason: pain) Qty: 10 RF: 0 Continued cholecalciferol (vitamin D3) 5,000 unit/mL drops 1,000 unit PO DAILY RF: 0 calcium carbonate [Calcium 600] 600 mg calcium (1,500 mg) tablet 600 mg PO DAILY RF: 0 [id number] 250 mg-200 mg- 1,500 unit tablet 1 tab PO DAILY RF: 0 Discontinued ibuprofen 200 mg Tablet 200 mg PO ONCE PRNRF: 0 Discharge Instructions Additional Instructions: Dr. Lee?s Total Knee Discharge Instructions Activity: The most important activity is to walk. You should try to take short walks a few times a day. It is important that when resting you work on keeping the knee straight. Avoid putting a pillow behind the knee as this will encourage flexion. Work on range of motion exercises as provided by Physical Therapy. - Start outpatient physical therapy within 1-2 weeks. - You should wear the HERMANN hose on both legs for 2 weeks. Dressing: Keep the surgical dressing in place for at least one week. After the first week it may be removed and replace with light gauze and tape or nothing. It may get wet after 3 days but avoid soaking the dressing. If it gets wet, just lightly pat dry. You should use a seat or chair to assist with shower. To protect the dressing, you may apply plastic cling wrap. Medications: - You should take Tylenol and anti-inflammatory (Celebrex) as your primary pain control medications - You have been prescribed a stronger pain medication (Tramadol) for breakthrough pain, take as needed as prescribed. - You will be taking Aspirin 81mg twice a day for DVT prevention unless instructed otherwise. - If you have constipation you should take Colace or Miralax (both kazr-cjm-mhocefx). It takes most people 3-4 days to have a bowel movement. Follow-up: 2 weeks Referrals: Edmar Lee MD [ [facility] STAFF PHYSICIAN] - Activity:: Activity as Tolerated Equipment/Supplies:: Walker Diet:: As Tolerated Discharge Orders Discharge Orders: Discharge Order (Routine); Ordered 08/19/18 Ordered By: Edmar Lee DS: Data Vitals/I&O Vitals and I&O: Vital Signs Temperature 36.7 C 08/19/18 07:20 Temperature Source Tympanic 08/19/18 07:20 Pulse 78 08/19/18 07:20 Pulse Rhythm Regular 08/19/18 09:10 Respiratory Rate 16 08/19/18 09:36 Respiratory Effort Non-Labored 08/19/18 09:10 Respiratory Depth Normal 08/19/18 09:10 Respiratory Pattern Normal 08/19/18 09:10 Blood Pressure 125/78 08/19/18 07:20 Pulse Oximetry 97 08/19/18 07:20 Respiratory End-tidal CO2 37 08/18/18 14:02 Oxygen Delivery Method Room Air 08/19/18 07:20 Oxygen Flow Rate 0 08/19/18 07:20 Pain Level 1 08/19/18 09:36 Intake & Output 08/18/18 08/19/18 08/19/18 23:59 11:59 23:59 Intake Total 3000 / 3110 1468.667 / 1888.667 420 / 1888.667 Output Total 3150 / 3150 1930 / 1930 Balance -150 / -40 -461.333 / -41.333 420 / -41.333 Intake: IV 2160 / 2270 858.667 / 858.667 Oral 840 / 840 610 / 1030 420 / 1030 Output: Urine 2900 / 2900 1930 / 1930 Estimated Blood Loss 250 / 250 Other: Urine Color Pale Pale Yellow Yellow Urine Appearance Clear Clear Urine Odor None Emesis Description None PFSH Medical History Hyperlipemia (Acute) History of ganglion cyst (Acute) Lyme disease (Chronic) Surgical History History of bunionectomy (Acute) History of recent maxillofacial surgery (Acute) History of tonsillectomy and adenoidectomy (Acute) History of uvulectomy (Acute) Status post endoscopic carpal tunnel release (Acute) History of arthroscopic knee surgery (Chronic) Family History Father Hyperlipidemia Mother Cancer Brother Hypertension Sister Heart disease Social History Smoking/Tobacco Use Status: Never Drug use: Never
--- NOTE | 2018-08-20 08:59 | PT.INDS ---
Date of service: 08/20/18 Time of Service: 09:02 PT Notes Inpatient Physical Therapy Discharge Summary Dates: 08/03/2018 Dates of Service: 08/10/2018 through 08/19/2018 This is a clinical summary of care provided on the duration of dates listed above. No charge was made in the completion of this documentation. Referring Doctor: Edmar Lee MD PT Orders: PT CONSULT: S/P L TKA Precautions: Fall. Standard. WBAT on L. Patient Profile/Admitting Diagnosis: Patient is a 68-year-old female with primary osteoarthritis of L knee S/P L total knee arthroplasty on postoperative day 0. PMHX: Medical History History of ganglion cyst (Acute) Hyperlipemia (Acute) Lyme disease (Chronic) Surgical History History of unionectomy (Acute) History of recent maxillofacial surgery (Acute) History of tonsillectomy and adenoidectomy (Acute) History of uvulectomy (Acute) Status post endoscopic carpal tunnel release (Acut Social History/Home Situation: Patient lives in a house in [place], [place] with significant other with one step to enter, no rails but with a flight of stairs to get to the second floor of the house, rail on the left going up. She states that she can sleep on the first floor if mobility and safety is going to be an issue. 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 She was independent with all aspects of ADLs without the need for an assistive ambulatory device nor adaptive equipment. She still drives. Current Functional Limitations: Need for assistance with all transfer and ambulation task performance using a FWW. Equipment Owned/DME: None Subjective: NT Objective: General Observation: NT Mental Status: NT Pain: NT ROM: Right Upper Extremity: Shoulder Flexion WFL. Shoulder abduction WFL. Elbow flexion WFL. Wrist flexion WFL. Functional opening and closing of hand WFL. Left Upper Extremity: Shoulder Flexion WFL. Shoulder abduction WFL. Elbow flexion WFL. Wrist flexion WFL. Functional opening and closing of hand WFL. Right Lower Extremity: Hip flexion WFL. Hip abduction WFL. Knee flexion WFL. Knee extension -10 degrees. Ankle dorsiflexion WFL. Ankle plantarflexion WFL. Left Lower Extremity: Hip flexion 0 to 80 degrees. Hip abduction WFL. Knee flexion 0-100 degrees with active range limited by MINDY wraps and mild discomfort. Ankle dorsiflexion WFL. Ankle plantarflexion WFL. Strength: Right Upper Extremity: Shoulder flexors 5/5. Shoulder abductors 5/5. Elbow flexors 5/5. Elbow extensors 5/5. Underground Conduit Installer strong. Left Upper Extremity: Shoulder flexors 5/5. Shoulder abductors 5/5. Elbow flexors 5/5. Elbow extensors 5/5. Underground Conduit Installer strong. Right Lower Extremity: Hip flexors 3-/5. Hip abductors 5/5. Knee flexors 3-/5. Knee extensors 3-/5. Ankle dorsiflexors 5/5. Ankle plantarflexors 5/5. Left Lower Extremity:Hip flexors 4/5. Hip abductors 5/5. Knee flexors 4/5. Knee extensors 4/5. Ankle dorsiflexors 5/5. Ankle plantarflexors 5/5. Sensation: Patient reports diminished sensation to bilateral lower extremities as to as to pressure Bed Mobility/Transfers: Rolling SBA Supine to sit SBA with HOB flat Sit to supine SBA with HOB flat Sit to stand minimal assist with verbal cueing for hand placement and tactile cueing to bilateral knees for stability Stand to sit minimal assist with verbal cueing for hand placement and tactile cueing to bilateral knees for stability Bed to chair minimal assist with verbal cueing for hand placement and tactile cueing to bilateral knees for stability Chair to bed minimal assist with verbal cueing for hand placement and tactile cueing to bilateral knees for stability Gait: Per PT documentation on 08/19/2018 patient was able to tolerate 100 feet x 2 requiring only SBA with WBAT on left using F WW using step through gait pattern with knee buckling x 4 but with increased ludin. Patient was also able to negotiate 4 inch steps x 6 while holding onto one rail and while using SPC on the other hand using step to gait pattern requiring only supervision Balance: Static Sitting: Good Dynamic Sitting: Good Static Standing: Fair Dynamic Standing: Fair Assessment: 68-year-old female with primary unilateral osteoarthritis status post left knee total arthroplasty. Patient presents with clinical signs and symptoms consistent with current/admitting diagnoses and post reparative status that have resulted to mobility limitations, gait instability, generalized weakness, and impairment of motor control as demonstrated by the following impairment level findings: 1. Decreased strength to L LE major muscle groups 2. Impaired sitting/standing balance 3. Impaired activity tolerance 4. Limitation of joint range of motion in left hip and knee joints 5. Decreased bilateral quadriceps activation due to post operative and post anesthesia effects Impairments are contributing to the following functional limitations: 1. Dependent bed mobility skills 2. Increased dependence with transfers 3. Inability to safely ambulate without assistive device and physical assistance 4. Increase completion time for mobility ADL performance 5. Increased fall risk 6. Inability to negotiate steps alone safely Goals: Goals X1 week 1. Supine-Sit independent MET 2. Sit-Supine independent MET 3. Sit-Stand independent NOT MET 4. Stand-Sit independent NOT MET 5. Bed-Chair independent NOT MET 6. Chair-Bed independent NOT MET 7. Independent gait on level surface with use of least restrictive device for at least 300 feet without report of pain nor dyspnea NOT MET 8. Independent stair negotiation while holding onto bilateral rails for at least 10 steps without report of pain nor dyspnea NOT MET 9. Independent with home exercise program MET 10. Good static and dynamic standing balance/tolerance NOT MET DISCHARGE RECOMMENDATIONS: Patient requires a front wheeled walker at discharge destination for independent mobility ADL performance and fall reduction. Patient may benefit from home health PT services in order to progress mobility level using least restrictive assistive ambulatory device/using no device, assess home safety, identify additional equipment needs, and establish a functional maintenance program that will increase ability of patient to remain at home. TREATMENT CODE/TIME: NEERAJ. Thank you very much for this referral. Georgiana Haskins PT, DPT, CLT [facility]
== END 2018-08-19 14:31 | disposition home or self-care (01) | DRG 470 ==
LOC: PDS 10:25 → MS 13:43
PROVIDERS: Admitting Provider Student in an Organized Health Care Education/Training Program; PCP Registered Nurse; Visit Provider Student in an Organized Health Care Education/Training Program
PROC: 0SRD0J9 Replacement of Left Knee Joint with Synthetic Substitute, Cemented, Open Approach (ICD-10-PCS; CPT 27447; principal; 2018-08-18 11:15)
DX: M17.12 Unilateral primary osteoarthritis, left knee (principal); Z96.652 Presence of left artificial knee joint; G89.18 Other acute postprocedural pain; E78.5 Hyperlipidemia, unspecified
CPT/HCPCS: 27447; 76942; 97110; 97162; 97530; NC; J0690; J1885; J2250; J2405; J3010

== ENCOUNTER 2018-09-02 10:19 | Outpatient (CLI) | payer MEDICARE, SELFPAY ==
--- NOTE | 2018-09-02 10:11 | DI.RAD_ITS ---
SYMPTOMS/DIAGNOSIS: POST OP LEFT KNEE AND LEG LENGTH EXAMINATION: The patient has a left total knee replacement. The orthopedic hardware appears in good position. No lucencies are seen in or about the orthopedic hardware. The bones are intact. In the left knee there is moderate narrowing of the medial femoral tibial joint space. Periarticular spurring is seen both medially and laterally. The lower extremity measures 81.5 cm. The left lower extremity measures 82.4 cm.
== END 2018-09-02 10:39 ==
PROVIDERS: PCP Registered Nurse; Referring Provider Registered Nurse; Visit Provider Student in an Organized Health Care Education/Training Program
DX: Z96.652 Presence of left artificial knee joint (principal); Z47.1 Aftercare following joint replacement surgery; M17.12 Unilateral primary osteoarthritis, left knee
CPT/HCPCS: 73560; 77073

== ENCOUNTER → 2018-09-30 10:03 | Outpatient (BNVA) | payer MEDICARE, SELFPAY | PROVIDERS: PCP Registered Nurse; Referring Provider Registered Nurse; Visit Provider Student in an Organized Health Care Education/Training Program | DX: Z96.652 Presence of left artificial knee joint (principal); Z47.1 Aftercare following joint replacement surgery ==

== ENCOUNTER → 2018-10-28 10:11 | Outpatient (BNVA) | payer MEDICARE, SELFPAY | PROVIDERS: PCP Registered Nurse; Referring Provider Registered Nurse; Visit Provider Student in an Organized Health Care Education/Training Program | DX: Z96.652 Presence of left artificial knee joint (principal); Z47.1 Aftercare following joint replacement surgery ==

== ENCOUNTER → 2022-02-26 02:35 | Outpatient (CLI) | payer MEDICARE, SELFPAY ==
--- NOTE | 2022-02-26 11:00 | DI.MAMMO_ITS ---
Exam(s) MAMMO SCREENING EXAM: MAMMO SCREENING CLINICAL HISTORY: SCREENING, Z12.31. TECHNIQUE: Bilateral full field digital CC and MLO mammographic images were obtained with 3D tomosyn thesis and utilizing computer aided detection (CAD). COMPARISON: Prior outside mammograms were reviewed. FINDINGS: There has been no significant change in the appearance and distribution of the fibroglandular tissue. No new findings in the right breast. Small benign-appearing nodule anteriorly in the left breast seen on the MLO view is unchanged from ou tside study of December 2019 and therefore most probably benign. There are no malignant-appearing microcalcification in either breast. There is no significant architectural distortion nor skin thickening-retraction. IMPRESSION: Stable benign findings. No radiographic evidence of malignancy. BI-RADS Category 2 - Benign Findings Breast Density - Category B - Scattered areas of fibroglandular density Breast density Category C or D implies that the patient has dense breast tissue. Dense breast tissue can make it harder to find cancer on a mammogram. Dense breast tissue is also associated with an incr eased risk of breast cancer. This information about the result of the mammogram report was provided to the patient to raise their awareness. Use this report when you speak with the patient about their risks for breast cancer, which includes their family history. At that time, you may recommend additional screening tests (Ultrasoun d or MRI) as these tests may add significant information. A negative radiographic report should not delay biopsy if a dominant or clinically suspicious mass is present. Up to ten percent of cancers are not identified on mammography. A negative report may reinforce clinical impression. Adenosis and dense breasts may obscure an underlying neoplasm. False positive reports average 6 to 10%. Patient will receive a letter notifying them of these results.
== END ==
PROVIDERS: PCP Registered Nurse; Visit Provider Nurse Practitioner Family
DX: Z12.31 Encounter for screening mammogram for malignant neoplasm of breast (principal); N60.82 Other benign mammary dysplasias of left breast
CPT/HCPCS: 77063; 77067

== ENCOUNTER → 2023-11-13 10:06 | Outpatient (BNVA) | payer MEDICARE, SELFPAY | PROVIDERS: PCP Nurse Practitioner Family; Referring Provider Nurse Practitioner Family; Visit Provider Physical Therapy Assistant | DX: Z12.11 Encounter for screening for malignant neoplasm of colon (principal) ==

== ENCOUNTER 2023-11-28 09:00 | Day surgery (SDC) | payer MEDICARE, SELFPAY ==
--- NOTE | 2023-11-27 20:55 | COLE_ITS ---
Date of service: 11/28/23 Time of Service: 11:32 Colonoscopy Report Date of procedure: 11/28/23 Pre-op diagnosis general: CRC screening Post-op diagnosis procedure note: other (mass at 20cm ) Surgeon: Marcella Bustos Anesthesia Type: General:No Airway Estimated blood loss (mL): 5 Pathology: other Complications: None Disposition: same day Prep: Miralax/Dulcolax Retraction Time: 50 Procedure Description: After informed consent was obtained, explaining risks of the procedure, including but not limits to: bleeding, infections, complications of anesthesia, perforations (which may require antibiotics and /or surgery and stay in the hospital), and abdominal pain/cramping. The patient was taken to the procedure room and placed in a left decubitous position. Monitors were applied and a time out was done. The patients name, date of , procedure, allergies to medications and metal in their body was reviewed. The patient was then sedated. Once sedated and comfortable a rectal exam was done. External exam was normal. Internal exam revealed a normal sphincter tone and no palpable masses. The previously lubricated Olympus scope was then introduced (see RN notes for scope number) and retrofelexed. No internal hemorrhoids were identified. The scope was then advanced to the cecum without difficulty. The TI and appendiceal orifice were identified. The scope was then slowly retracted over 50 minutes back into the rectum. Polyps: 2cm pedunculated friable polyp. This is a flat polyp. It is at 20 cm. this is removed w/ acold snare and tatooed. I am not able to completely remove the entire area. There is also an adjacent 0.75 cm polyp at 20 cm. This is removed with a cold biting forcep as well diverticula: No. The mucosa is pink and healthy w/ a normal vascular pattern. The scope was removed, and the patient was woken up and taken back to Same day surgery in stable condition. The patient tolerated the procedure well and there were no immediate complications. Follow up: The patient should follow up in clinic in 2 wks time to review Bx and formulate a treatment plan. [place] Bowel Prep [place] Bowel Prep Right Colon: 3 Left Colon: 3 Transverse Colon: 3 Total Score: 9
--- NOTE | 2023-11-27 20:56 | PDOC.DSDIS_ITS ---
Date of service: 11/28/23 Time of Service: 12:18 Discharge Plan Disposition Patient Disposition: Home Condition: Good Discharge Details Reason For Visit: colon scope Attending Provider: Marcella Bustos Primary Care Provider: Nichole Olsen Home Meds and New Rx's Prescriptions: Continued cholecalciferol (vitamin D3) 5,000 unit/mL drops 1,000 unit PO DAILY Patient Comments: 08.13.18 pt unsure of dose.HE calcium carbonate [Calcium 600] 600 mg calcium (1,500 mg) tablet 600 mg PO DAILY [id number] 250 mg-200 mg- 1,500 unit tablet 1 tab PO DAILY Patient Comments: 08.13.18 pt stated.HE cholecalciferol (vitamin D3) 10 mcg (400 unit) capsule 10 mcg PO DAILY red yeast rice 600 mg capsule 600 mg PO DAILY Rx Instructions: give with meal/snack multivitamin Tablet 1 tab PO DAILY Patient Comments: / tab new chapter nutritional supplements PO Patient Comments: 11/13/23 - New chapter zyflamel (herbal, joint relief) new chapter zyflamend 1 tab PO DAILY AM Patient Comments: herbal, joint relief new chapter immune support 1 tab PO Patient Comments: reishi, shitake, mushroom blend mecobalamin (vitamin B12) 1,000 mcg tablet,chewable 1,000 mcg PO DAILY Discontinued bisacodyl [Dulcolax (bisacodyl)] 5 mg tablet,delayed release (DR/EC) 5 mg PO ONCE Qty: 4 0RF Rx Instructions: Take per colonoscopy instructions provided by ordering providers office polyethylene glycol 3350 17 gram/dose powder 17 g PO ONCE Qty: 238 0RF Rx Instructions: Take per colonoscopy instructions provided by ordering providers office Discharge Instructions Additional Instructions: DSU Colonoscopy Post- Op Instructions Instructions for Everyone who is given Anesthesia: For your safety, please do the following for the next twenty-four (24) hours: *Do Not operate a motor vehicle (car, truck, motorcycle, etc.) *Do Not drink alcoholic beverages or use any recreational drugs for the first 24 hours or while taking pain medications. The medications in your body may have a reaction that can be dangerous. *Do Not make any important decisions or sign any important papers. Findings: polyp/mass at 20cm Follow up: 2 wks w/ Dr. Butsos to review biopsy results 1. No lifting over 20 pounds or strenuous activity for the first 24 hours after your procedure. After 24 hours there are no restrictions on your activity but you may feel fatigued for a few days. 2. After you arrive home you may have a light meal and return to your normal diet as you can tolerate it without feeling sick to your stomach. 3. You may have a bloated, gaseous feeling in your belly (abdomen) after a colonoscopy. Passing gas and belching will help. Walking or lying down on your left side with your knees flexed may relieve the discomfort. Call the office at [phone] (Office) or [phone] (Hospital) right away if you notice any of the following: a.Vomiting of blood or ?coffee ground stools?. b.Rectal bleeding 1Tbsp, blood clots or continuous bleeding. c.Severe belly (abdominal) pain. d.A hard distended belly (abdomen) and an inability to pass gas. 4. Please don?t expect to have a normal BM (bowel movement) for 2-3 days after your procedure. 5. If there are questions regarding the findings of your procedure, please contact your doctor 6. If you are unable to contact your doctor with a problem, contact the hospital at [phone]. 7. Continue all your regular medications unless directed otherwise. I understand the above instructions and have no questions. Signature of Patient or Adult Escort Name of Responsible Adult Escort Signature of Nurse Date/Time Stand Alone Forms: Anesthesia Discharge Jeff Lind (DSU) Activity:: see above Diet:: see above Discharge Orders Discharge Orders: Discharge Order (Routine); Ordered 11/28/23 Ordered By: Marcella Bustos DS: Diagnosis Discharge Diagnosis (1) Screening for malignant neoplasm of colon performed: Status: Acute Asessment and Plan: The patient is seen and examined after their colonoscopy.? The patient has been able to pass gas.? They are not having abdominal pain.? They have been able to tolerate liquids and a snack.? They do not have any nausea or vomiting.? They are not having any chest pain or shortness of breath.??? They are not having any rectal bleeding. Their vital signs have been stable-see nursing notes. We discussed findings during their colonoscopy, and any biopsies that were done/polyps that were removed. The patient will be sent a letter with any biopsy results, and when to repeat the colonoscopy.-see discharge instructions. Patient was given explicit instructions to follow-up regarding colonoscopy-refer to discharge instructions.? We reviewed resumption of medications. Patient verbalized understanding and discharged in stable and satisfactory condition- See nursing notes. (2) Right knee DJD: Status: Acute (3) Hyperlipemia: (4) Prolapse of anterior vaginal wall: (5) Lyme disease: (6) LIZ (obstructive sleep apnea):
[2023-11-28 09:20] VITALS: BP 126/84; PULSE 114; RESP 22; TEMP 36.1; O2SAT 98
[2023-11-28] MEDS: Lactated Ringers 1,000 ML 80 ML IV (09:37)
--- NOTE | 2023-11-28 09:42 | W.ANESPRE ---
General Info Date of Service Date Performed: 11/28/23 Height: 5 ft 2 in Weight: 69.8 kg Body Mass Index (BMI): 28.1 Surgical Procedure: Operation Date: 11/28/23 10:05 Proposed Procedure Side Surgeon p Colonoscopy Marcella Bustos, DO Actual Procedure Side Surgeon p Colonoscopy Not Applicable Marcella Bustos, DO Meds Allergies and Home Medications Allergies Allergy/AdvReac Type Severity Reaction Status Date / Time No Known Allergies Allergy Unverified 11/13/23 10:10 Home Medication ?Medication ?Instructions ?Recorded calcium carbonate (Calcium 600) 600 mg PO DAILY 08/13/18 cholecalciferol (vitamin D3) 125 1,000 unit PO DAILY 08/13/18 mcg/mL (5,000 unit/mL) oral drops glucosamine 250 gn-onnzr-qzz 200 1 tab PO DAILY 08/13/18 mg-D3 1,500 nxls-P-qqrst-herbs tablet cholecalciferol (vitamin D3) 10 10 mcg PO DAILY 09/11/23 mcg (400 unit) capsule red yeast rice 600 mg capsule 600 mg PO DAILY 09/11/23 mecobalamin (vitamin B12) 1,000 1,000 mcg PO DAILY 10/09/23 mcg chewable tablet multivitamin 1 tab PO DAILY 11/13/23 new chapter immune support 1 tab PO 11/13/23 new chapter nutritional supplements PO 11/13/23 new chapter zyflamend 1 tab PO DAILY AM 11/13/23 Current Visit Medications: Current Medications Generic Name Dose Route Start Last Admin Trade Name Freq PRN Reason Stop Dose Admin Hyoscyamine Sulfate 0.125 mg 11/28/23 10:40 Hyoscyamine 0.125 Mg Sl/Oral/Chew SL 12/28/23 10:39 DIRECTED PRN Ringer's Solution 1,000 mls @ 80 mls/hr 11/28/23 06:00 11/28/23 09:37 IV 11/28/23 23:59 80 mls/hr INFUSION MONIQUE Administration IV Miscellaneous Supplies 1 each 11/28/23 06:00 Iv Access IV 11/28/23 23:59 DIRECTED MONIQUE Ondansetron HCl 4 mg 11/28/23 10:40 Ondansetron 4 Mg/2 Ml Vial IVP 12/28/23 10:39 Q4H PRN PRN Nausea / Vomiting Sodium Chloride 0 ml 11/28/23 06:00 Normal Saline Flush 10 Ml Syr IV 11/28/23 23:59 PRN PRN Sodium Chloride 0 ml 11/28/23 06:00 Normal Saline 10 Ml Vial IJ 11/28/23 23:59 DIRECTED PRN Sterile Water 0 ml 11/28/23 06:00 Water,Injection,Sterile 10 Ml Vial IJ 11/28/23 23:59 DIRECTED PRN PFSH Active Problems Active Problems: Problem Status Onset Code Screening for malignant neoplasm of colon performed Acute Z12.11 Right knee DJD Acute M17.11 Tendinitis involving left hip abductors Acute M76.892 Medical History Medical History Prolapse of anterior vaginal wall LIZ (obstructive sleep apnea) BCC (basal cell carcinoma of skin) Tinnitus Depression Anxiety History of ganglion cyst Right middle finger Hyperlipemia Lyme disease Surgical History Surgical History History of total left knee replacement (TKR) (08/18/18) Dr. Lee History of arthroscopic knee surgery History of uvulectomy Status post endoscopic carpal tunnel release bilateral History of bunionectomy History of recent maxillofacial surgery Maxillomandibular advancement surgery 02/07 for sleep apnea. Titanium plates History of tonsillectomy and adenoidectomy As a child Tobacco Smoking/Tobacco Use Status: Never Alcohol Alcohol Intake: current Alcohol intake frequency: a few times a week Alcohol type: wine and hard liquor Substance Use Substance use: Never Substance use type: does not use Details: CBD salve for muscle aches Prental History Past Pregnancies Del. Date GA/Weeks # Preg Succ Route Wgt Sex Labor Lgth Anesthesia Location Prov Complic Unknown Yes vaginal 2721.554 g [facility] [place] Unknown Yes vaginal 2863.302 g Female [place], [place] Unknown Yes vaginal 3175.147 g Female [place], [place] Delivery Date: Last Updated by: Ghazala Rivera RN Baby born 05/1979 Delivery Date: Last Updated by: Ghazala Rivera RN Baby born 05/1983 Delivery Date: Last Updated by: Ghazala Rivera RN Baby born 10/1985 Vital Signs and Lab Results Vital Signs Most Recent Vital Signs in EMR: Most Recent Vital Signs Temp Pulse Resp BP Pulse Ox 36.1 C L 114 H 22 126/84 98 11/28/23 09:20 11/28/23 09:20 11/28/23 09:20 11/28/23 09:20 11/28/23 09:20 Lab Results Blood Type / Crossmatch: No Data to Display Complete Blood Count: No Data to Display Complete Metabolic Panel: No Data to Display Liver Function Panel: No Data to Display Coagulation Panel: No Data to Display Cardiac Panel: No Data to Display Arterial Blood Gas: No Data to Display Venous Blood Gas: No Data to Display Pancreas Panel: No Data to Display Thyroid Panel: No Data to Display Infectious Disease: No Data to Display Blood Cultures: No Data to Display Toxicology Panel: No Data to Display Anesthesia Assessment and Plan Anesthesia History Personal History: No History of Anesthesia Complications Family History: No Family History of Anesthesia Complications Exercise Tolerance Exercise Tolerance: Metabolic Equivalents>4 Pertinent Negatives Pertinent Negatives: No Symptoms of GERD, No Major Cardiovascular Symptoms or Complaints, No Major Pulmonary Symptoms or Complaints and No History of CVA/TIA Cardiac & Pulmonary Exam Cardiac Exam: Normal S1/S2 Heart Sounds Pulmonary Exam: Clear Bilateral Breath Sounds Implantable Cardiac Device Does patient have a Pacemaker or an ICD?: No Airway Exam Known Difficult Airway: No Mallampati Class: 2 Mouth Opening: Normal (> 3cm) Thyromental Distance: Greater than 3 cm Neck Range of Motion: Full ROM Neck Circumference: Normal Teeth Condition: Normal Dentition ASA Classification ASA Score: ASA 2 Emergency Case?: No NPO Status NPO Status: NPO Clears >2 hours, Solids >8 hours Anesthesia Plan Resuscitation Status: Full Code Anesthesia Technique: General Anesthesia Airway Planned: Natural Airway Monitors Used: Standard Monitors
[2023-11-28 09:43] VITALS: BMI 28.1
[2023-11-28] MEDS: CLINDAMYCIN 600 MG/50 ML BAG 100 MG IVPB (10:00)
--- NOTE | 2023-11-28 10:20 | BOWEL_PTH ---
PATIENT: Audra Roe LOC: [facility] U#:[id number] AGE/SX: 73/F ROOM: RE11/28/[address]: Marcella Bustos : 1950 BED: DIS: 11/28/2023 SPEC #: [id number] RECD: 11/28/23 13:18 STATUS: NATALIE REQ #: [id number] KATLIN: 11/28/23 10:[address]: Marcella Bustos DEPT: Surgical Specimen RECD BY: Meliza Richmond ENTERED: 11/28/23 13:19 SP TYPE: Bowel OTHR DR: Nichole Olsen, TRU Tissues: 1 - BIOPSY BOWEL 2 - BIOPSY BOWEL Procedures: GROSS AND MICRO LEVEL 4 Comments: [id number]
[2023-11-28] MEDS: Endoscopic Tattoo 5 ML SYR IJ (10:45)
[2023-11-28 11:05] VITALS: BP 95/70; PULSE 90; RESP 16; TEMP 36; O2SAT 96
[2023-11-28 11:31] VITALS: BP 103/71; PULSE 74; RESP 16; TEMP 36.2; O2SAT 99
--- NOTE | 2023-11-28 11:59 | W.ANESPOSTOP ---
Postoperative Evaluation Date, Time and Location Date Performed: 11/28/23 Time Performed: 11:30 Patient Location: Day Surgery Unit Vital Signs Most Recent Imported Vital Signs: Most Recent Vital Signs Temp Pulse Resp BP Pulse Ox 36.2 C L 74 16 103/71 99 11/28/23 11:31 11/28/23 11:31 11/28/23 11:31 11/28/23 11:31 11/28/23 11:31 Pain Score Most Recent Pain Score: Most Recent Pain Score Pain Level 0 11/28/23 11:31 Assessment Mental Status: Awake (Alert & Oriented to Patient Baseline) Airway and Respiratory Function: Patent airway with normal (patient baseline) respiratory exam Cardiovascular Function: Hemodynamically Stable Hydration Status: Adequately Hydrated Nausea & Vomiting: No Nausea or Vomiting Pain: Pt. Denies Any Pain Peripheral Nerve Block: Patient did not receive a nerve block
== END 2023-11-28 12:30 | disposition home or self-care (01) ==
LOC: SUR 09:00
PROVIDERS: PCP Nurse Practitioner Family; Visit Provider Surgery
PROC: 0DJD8ZZ Inspection of Lower Intestinal Tract, Via Natural or Artificial Opening Endoscopic (ICD-10-PCS; CPT 45378; principal; 2023-11-28 10:00)
DX: Z12.11 Encounter for screening for malignant neoplasm of colon (principal); D12.5 Benign neoplasm of sigmoid colon
CPT/HCPCS: 45385; 45380; 45381; 88305; J0737; J2704

== ENCOUNTER → 2023-12-08 10:12 | Outpatient (BNVA) | payer MEDICARE, SELFPAY | PROVIDERS: PCP Nurse Practitioner Family; Referring Provider Nurse Practitioner Family; Visit Provider Surgery | DX: D37.4 Neoplasm of uncertain behavior of colon (principal); E78.5 Hyperlipidemia, unspecified; G47.33 Obstructive sleep apnea (adult) (pediatric) | CPT/HCPCS: 99214 ==

== ENCOUNTER 2024-02-17 01:21 | Outpatient (CLI) | payer MEDICARE, SELFPAY ==
--- NOTE | 2024-02-17 | DI.MAMMO_ITS ---
Exam(s) MAMMO SCREENING EXAM: MAMMO SCREENING CLINICAL HISTORY: Screening, Z12.39 TECHNIQUE: Bilateral full field digital CC and MLO mammographic images were obtained with 3D tomosyn thesis and utilizing computer aided detection (CAD). COMPARISON: Available for comparison. FINDINGS: Masses/Architectural Distortion: There are bilateral breast nodules. No suspicious nodules. No area s of architectural distortion are present. Microcalcifications: No suspicious pleomorphic-type are seen. Skin Thickening/Nipple Retraction: None. IMPRESSION: 1. No significant interval change with no specific features of malignancy noted. 2. Unless there is more urgent need, screening mammography is recommended, as per [place] [employer] guidelines. BI-RADS Category 2 - Benign Findings Breast Density - Category B - Scattered areas of fibroglandular density Breast density category C or D implies that the patient has dense breast tissue. Dense breast tissue is very common and is not abnormal but dense breast tissue can make it harder to find cancer on a ma mmogram. Also, dense breast tissue may increase their breast cancer risk. This information about the result of the mammogram report was provided to the patient to raise their awareness. Use this report when you speak with the patient about their risks for breast cancer, which includes their family hist ory. At that time, you may recommend for more screening tests (Ultrasound or MRI) as they might be us eful based on their risk. A negative radiographic report should not delay biopsy if a dominant or clinically suspicious mass is present. Up to ten percent of cancers are not identified on mammography. A negative report may reinforce clinical impression. Adenosis and dense breasts may obscure an underlying neoplasm. False positive reports average 6 to 10%. Patient will receive a letter notifying them of these results.
== END 2024-02-17 01:41 ==
LOC: DI 01:21
PROVIDERS: PCP Nurse Practitioner Family; Visit Provider Nurse Practitioner Family
DX: Z12.31 Encounter for screening mammogram for malignant neoplasm of breast (principal); R92.323 Mammographic fibroglandular density, bilateral breasts; D24.1 Benign neoplasm of right breast; D24.2 Benign neoplasm of left breast
CPT/HCPCS: 77063; 77067

== ENCOUNTER 2024-05-11 06:14 | Day surgery (SDC) | payer MEDICARE, SELFPAY ==
[2024-05-11 06:31] VITALS: BP 148/82; PULSE 98; RESP 18; TEMP 36.6; O2SAT 97
[2024-05-11] MEDS: Lactated Ringers 1,000 ML 80 ML IV (06:50)
--- NOTE | 2024-05-11 07:13 | W.ANESPRE ---
General Info Date of Service Date Performed: 05/11/24 Height: 5 ft 2 in Weight: 70.1 kg Body Mass Index (BMI): 28.3 Surgical Procedure: Operation Date: 05/11/24 07:35 Proposed Procedure Side Surgeon p Colonoscopy Shaniqua Hirsch MD Meds Allergies and Home Medications Allergies Allergy/AdvReac Type Severity Reaction Status Date / Time No Known Allergies Allergy Verified 05/10/24 13:23 Home Medication ?Medication ?Instructions ?Recorded calcium carbonate (Calcium 600) 600 mg PO DAILY 08/13/18 cholecalciferol (vitamin D3) 125 1,000 unit PO DAILY 08/13/18 mcg/mL (5,000 unit/mL) oral drops glucosamine 250 gu-dbjie-ybq 200 1 tab PO DAILY 08/13/18 mg-D3 1,500 fyzx-E-iyvmc-herbs tablet cholecalciferol (vitamin D3) 10 10 mcg PO DAILY 09/11/23 mcg (400 unit) capsule red yeast rice 600 mg capsule 600 mg PO DAILY 09/11/23 mecobalamin (vitamin B12) 1,000 1,000 mcg PO DAILY 10/09/23 mcg chewable tablet multivitamin 1 tab PO DAILY 11/13/23 new chapter immune support 1 tab PO DAILY 11/13/23 new chapter nutritional supplements PO 11/13/23 new chapter zyflamend 1 tab PO DAILY AM 11/13/23 bisacodyl 5 mg tablet,delayed 5 mg PO ONCE Colonoscopy Bowel 04/29/24 release Prep #4 tabs polyethylene glycol 3350 17 238 g PO ONCE #238 grams 04/29/24 gram/dose oral powder Current Visit Medications: Current Medications Generic Name Dose Route Start Last Admin Trade Name Corbinq PRN Reason Stop Dose Admin Ringer's Solution 1,000 mls @ 80 mls/hr 05/11/24 06:00 05/11/24 06:50 IV 05/11/24 23:59 80 mls/hr INFUSION MONIQUE Administration IV Miscellaneous Supplies 1 each 05/11/24 06:00 Iv Access IV 05/11/24 23:59 DIRECTED MONIQUE Sodium Chloride 0 ml 05/11/24 06:00 Normal Saline Flush 10 Ml Syr IV 05/11/24 23:59 PRN PRN Sodium Chloride 0 ml 05/11/24 06:00 Normal Saline 10 Ml Vial IJ 05/11/24 23:59 DIRECTED PRN Sterile Water 0 ml 05/11/24 06:00 Water,Injection,Sterile 10 Ml Vial IJ 05/11/24 23:59 DIRECTED PRN PFSH Active Problems Active Problems: Problem Status Onset Code Villous adenoma of colon Acute D37.4 Tendinitis involving left hip abductors Acute M76.892 Right knee DJD Acute M17.11 Medical History Medical History (Updated 05/10/24 @ 13:22 by Naldo Bai) Prolapse of anterior vaginal wall LIZ (obstructive sleep apnea) 2017-pt. states this has been corrected by surgery BCC (basal cell carcinoma of skin) Tinnitus Depression Anxiety History of ganglion cyst Right middle finger Hyperlipemia Lyme disease resolved per pt. Surgical History Surgical History History of colonoscopy (~11/2023) History of total left knee replacement (TKR) (08/18/18) Dr. Lee History of arthroscopic knee surgery History of uvulectomy Status post endoscopic carpal tunnel release bilateral History of bunionectomy History of recent maxillofacial surgery Maxillomandibular advancement surgery 02/07 for sleep apnea. Titanium plates History of tonsillectomy and adenoidectomy As a child Tobacco Smoking/Tobacco Use Status: Never Alcohol Alcohol Intake: current Alcohol intake frequency: a few times a week Alcohol type: wine and hard liquor Substance Use Substance use: Never Substance use type: marijuana Details: CBD salve for muscle aches, marijuana is edible (chocolate). Prental History Past Pregnancies Del. Date GA/Weeks # Preg Succ Route Wgt Sex Labor Lgth Anesthesia Location Prov Complic Unknown Yes vaginal 2721.554 g [facility] [place] Unknown Yes vaginal 2863.302 g Female [place], [place] Unknown Yes vaginal 3175.147 g Female [place], [place] Delivery Date: Last Updated by: Ghazala Rivera RN Baby born 05/1979 Delivery Date: Last Updated by: Ghazala Rivera RN Baby born 05/1983 Delivery Date: Last Updated by: Ghazala Rivera RN Baby born 10/1985 Vital Signs and Lab Results Vital Signs Most Recent Vital Signs in EMR: Most Recent Vital Signs Temp Pulse Resp BP Pulse Ox 36.6 C 98 H 18 148/82 H 97 05/11/24 06:31 05/11/24 06:31 05/11/24 06:31 05/11/24 06:31 05/11/24 06:31 Lab Results Blood Type / Crossmatch: No Data to Display Complete Blood Count: No Data to Display Complete Metabolic Panel: No Data to Display Liver Function Panel: No Data to Display Coagulation Panel: No Data to Display Cardiac Panel: No Data to Display Arterial Blood Gas: No Data to Display Venous Blood Gas: No Data to Display Pancreas Panel: No Data to Display Thyroid Panel: No Data to Display Infectious Disease: No Data to Display Blood Cultures: No Data to Display Toxicology Panel: No Data to Display Anesthesia Assessment and Plan Anesthesia History Personal History: No History of Anesthesia Complications Family History: No Family History of Anesthesia Complications Exercise Tolerance Exercise Tolerance: Metabolic Equivalents>4 Pertinent Negatives Pertinent Negatives: No Symptoms of GERD Cardiac & Pulmonary Exam Cardiac Exam: Normal S1/S2 Heart Sounds Pulmonary Exam: Clear Bilateral Breath Sounds Implantable Cardiac Device Does patient have a Pacemaker or an ICD?: No Airway Exam Known Difficult Airway: No Mallampati Class: 2 Mouth Opening: Normal (> 3cm) Thyromental Distance: Greater than 3 cm Neck Range of Motion: Full ROM Neck Circumference: Normal Teeth Condition: Normal Dentition ASA Classification ASA Score: ASA 2 Emergency Case?: No NPO Status NPO Status: NPO Clears >2 hours, Solids >8 hours Anesthesia Plan Resuscitation Status: Full Code Anesthesia Technique: General Anesthesia Airway Planned: Natural Airway Monitors Used: Standard Monitors
[2024-05-11 07:15] VITALS: BMI 28.3
--- NOTE | 2024-05-11 07:37 | W.PM.HP.N ---
Date of service: 05/11/24 Time of Service: 07:37 Assessment and Plan Assessment and plan (1) Villous adenoma of colon: Status: Acute Assessment and plan: Patient with a high risk polyp. 6-month follow-up indicated. I have outlined the risks of the procedure including those of bowel perforation, bleeding after a polypectomy, oversedation, and inability to complete the exam. The patient agrees to proceed and signed the consent form. History of Present Illness Narrative: This patient had previous colonoscopy with polypectomy of a large polyp which is suspicious for incomplete excision. A tattoo was placed. 6-month follow-up colonoscopy is indicated. The patient reports no new medical changes since her previous procedure other than she had a successful surgery to correct urinary incontinence in late February 2024. Review of Systems Narrative: The patient denies chest pain, shortness of breath, history of clots, abnormal bleeding. She denies any viral symptoms within the last week. PFSH All Active Problems Villous adenoma of colon (Acute) Tendinitis involving left hip abductors (Acute) Right knee DJD (Acute) Medical History Prolapse of anterior vaginal wall LIZ (obstructive sleep apnea) 2017-pt. states this has been corrected by surgery BCC (basal cell carcinoma of skin) Tinnitus Depression Anxiety History of ganglion cyst Right middle finger Hyperlipemia Lyme disease resolved per pt. Surgical History History of colonoscopy (~11/2023) History of total left knee replacement (TKR) (08/18/18) Dr. Lee History of arthroscopic knee surgery History of uvulectomy Status post endoscopic carpal tunnel release bilateral History of bunionectomy History of recent maxillofacial surgery Maxillomandibular advancement surgery 02/07 for sleep apnea. Titanium plates History of tonsillectomy and adenoidectomy As a child Family History Father Hyperlipidemia Mother Cancer Brother Hypertension Sister Heart disease Social History Smoking/Tobacco Use Status: Never Smoking risk assessment performed?: Yes Alcohol Intake: current Alcohol Intake frequency: a few times a week Alcohol type: wine and hard liquor Drug use: Never Substance use type: marijuana Details: CBD salve for muscle aches, marijuana is edible (chocolate). Housing: house Do you feel safe at home: Yes Do you feel safe in your relationship?: Yes History Past Pregnancies Del. Date GA/Weeks # Preg Succ Route Wgt Sex Labor Lgth Anesthesia Location Prov Complic Unknown Yes vaginal 2721.554 g Female [facility] Unknown Yes vaginal 2863.302 g Female [place], [place] Unknown Yes vaginal 3175.147 g Female [place] Delivery Date: Last Updated by: Ghazala Rivera RN Baby born 05/1979 Delivery Date: Last Updated by: Ghazala Rivera RN Baby born 05/1983 Delivery Date: Last Updated by: Ghazala Rivera RN Baby born 10/1985 Meds Allergies and Home Medications Allergies Allergy/AdvReac Type Severity Reaction Status Date / Time No Known Allergies Allergy Verified 05/10/24 13:23 Home Medications ?Medication ?Instructions ?Recorded ?Confirmed ?Type calcium carbonate (Calcium 600) 600 mg PO DAILY 08/13/18 05/11/24 History cholecalciferol (vitamin D3) 125 1,000 unit PO DAILY 08/13/18 05/11/24 History mcg/mL (5,000 unit/mL) oral drops glucosamine 250 vw-rrieb-ixn 200 1 tab PO DAILY 08/13/18 05/11/24 History mg-D3 1,500 uynd-X-kzuch-herbs tablet cholecalciferol (vitamin D3) 10 10 mcg PO DAILY 09/11/23 05/11/24 History mcg (400 unit) capsule red yeast rice 600 mg capsule 600 mg PO DAILY 09/11/23 05/11/24 History mecobalamin (vitamin B12) 1,000 1,000 mcg PO DAILY 10/09/23 05/11/24 History mcg chewable tablet multivitamin 1 tab PO DAILY 11/13/23 05/11/24 History new chapter immune support 1 tab PO DAILY 11/13/23 05/11/24 History new chapter nutritional supplements PO 11/13/23 05/04/24 History new chapter zyflamend 1 tab PO DAILY AM 11/13/23 05/11/24 History bisacodyl 5 mg tablet,delayed 5 mg PO ONCE Colonoscopy Bowel 04/29/24 05/11/24 Rx release Prep #4 tabs polyethylene glycol 3350 17 238 g PO ONCE #238 grams 04/29/24 05/11/24 Rx gram/dose oral powder Exam HENMT Head: normocephalic and atraumatic Other: soft palate rises symmetrically, no erythema Eyes Conjunctivae: conjunctivae normal Sclera: sclerae normal Resp Effort & Inspection: normal respiratory effort Auscultation: clear to auscultation bilaterally and no wheezes Cardio Rate: regular rate Rhythm: regular rhythm Heart Sounds: S1 normal, S2 normal and no murmurs GI Palpation: soft and nontender Psych Appearance: grossly normal Mood: congruent mood Affect: normal affect Attitude: cooperative Results Last Vital Signs Temp 36.6 C 05/11/24 06:31 Pulse 98 H 05/11/24 06:31 Resp 18 05/11/24 06:31 BP 148/82 H 05/11/24 06:31 Pulse Ox 97 05/11/24 06:31 Time Spent Time spent with Patient: <40 minutes Time was spent: obtaining and/or reviewing separately otained hiistory and counseling the patient
[2024-05-11 08:21] VITALS: BP 102/66; PULSE 91; RESP 20; TEMP 36.4; O2SAT 95
--- NOTE | 2024-05-11 08:21 | COLE_ITS ---
Date of service: 05/11/24 Time of Service: 08:22 Colonoscopy Report Date of procedure: 05/11/24 Surgeon: Shaniqua Hirsch Findings: Small , 1 cm amount of residual polyp in the area of the previous tattoo, backside of a fold, removed completely with a single application of cold snare, with local residual mucosal edges sampled with a cold biopsy forceps. All tissue was completely retrieved and sent for pathology Procedure Description: After the risks, benefits, and alternatives of the procedure were thoroughly explained, informed consent was obtained. The Patient is brought to the pro cedure room and time out is performed confirming patient identity, nature of procedure. Patient is connected to monitoring devices including O2 sat, EKG and given supplemental oxygen per anesthesia. After appropriate anesthetic is obtained, patient is placed in the left lateral decubitus position and digital rectal exam performed with the findings noted . The colonoscope is inserted through the anus and guided under direct vision to the proximal colon as confirmed by presence of the appendiceal orifice and the ileocecal valve. The colonoscope is then slowly withdrawn , inspecting all aspects of the mucosa completely. Findings and any associated intervention, are noted above. The colonoscope was then completely withdrawn from the patient and the procedure terminated. The patient tolerated the procedure well and is transferred back to the Day surgery unit in stable condition.
[2024-05-11 08:49] VITALS: BP 107/83; PULSE 95; RESP 16; TEMP 36.5; O2SAT 97
--- NOTE | 2024-05-11 09:54 | W.ANESPOSTOP ---
Postoperative Evaluation Date, Time and Location Date Performed: 05/11/24 Time Performed: 08:45 Patient Location: Day Surgery Unit Vital Signs Most Recent Imported Vital Signs: Most Recent Vital Signs Temp Pulse Resp BP Pulse Ox 36.5 C 95 H 16 107/83 97 05/11/24 08:49 05/11/24 08:49 05/11/24 08:49 05/11/24 08:49 05/11/24 08:49 Pain Score Most Recent Pain Score: Most Recent Pain Score Pain Level 0 05/11/24 08:49 Assessment Mental Status: Awake (Alert & Oriented to Patient Baseline) Airway and Respiratory Function: Patent airway with normal (patient baseline) respiratory exam Cardiovascular Function: Hemodynamically Stable Hydration Status: Adequately Hydrated Nausea & Vomiting: No Nausea or Vomiting Pain: Pt. Denies Any Pain Peripheral Nerve Block: Patient did not receive a nerve block
== END 2024-05-11 09:12 | disposition home or self-care (01) ==
PROVIDERS: PCP Nurse Practitioner Family; Visit Provider Surgery
PROC: 0DJD8ZZ Inspection of Lower Intestinal Tract, Via Natural or Artificial Opening Endoscopic (ICD-10-PCS; CPT 45378; principal; 2024-05-11 07:30)
DX: Z12.11 Encounter for screening for malignant neoplasm of colon; D12.7 Benign neoplasm of rectosigmoid junction
CPT/HCPCS: 45385; 45380; 88305; J2003; J2704

== ENCOUNTER 2024-07-26 13:42 | Outpatient (CLI) | payer MEDICARE, SELFPAY ==
--- NOTE | 2024-07-26 11:30 | DI.RAD_ITS ---
Exam(s) XR STANDING ALIGNMENT EXAM: XR STANDING ALIGNMENT CLINICAL HISTORY: OA R KNEE. TECHNIQUE: 2D digital imaging was performed. COMPARISON: CR XR KNEE 4 OR MORE VIEWS BILAT from 10/29/2022 FINDINGS: 3 views Left knee prosthesis is again noted and appears stable. There is moderate narrowing of the medial compartment of the right knee which appears unchanged from outside images of October 2022. There is some mild chondrocalcinosis in the lateral compartment of th e right knee and degenerative subarticular cysts in the lateral femoral condyle again noted. Hips appear unremarkable as do the sacroiliac joints. Chronic disc space narrowing L4-5 level noted Ankles appear unremarkable. Bone density normal. No osseous lesions. IMPRESSION: As above DATA REPOSITORY: RADIATION DOSE DELIVERED:
== END 2024-07-26 13:43 | disposition home or self-care (01) ==
LOC: DIORS 13:43
PROVIDERS: PCP Nurse Practitioner Family; Referring Provider Nurse Practitioner Family; Visit Provider Physician Assistant
DX: M17.11 Unilateral primary osteoarthritis, right knee (principal); Z01.818 Encounter for other preprocedural examination
CPT/HCPCS: 77073

== ENCOUNTER 2024-07-26 19:12 | Outpatient (REF) | payer MEDICARE, SELFPAY ==
[2024-07-26 14:53] LABS: HCT 42.8 % (36.0-46.0); HGB 13.8 g/dL (11.2-15.7); MCH 29.4 pg (27.0-33.0); MCHC 32.2 % (32.0-36.0); MCV 91 fL (80-95); MPV 8.6 fL (8.0-11.0); Platelet Count 385 10^3/uL (130-400); RDW 14.1 % (11.7-14.6); RDW-SD 47.4 fL; WBC 6.12 10^3/uL (4.4-10.8)
[2024-07-26 15:24] LABS: BUN 11 mg/dL (7-18); CREATININE 0.7 mg/dL (0.55-1.02); Calcium 9.6 mg/dL (8.5-10.1); Chloride 102 mmol/L (98-107); Estimated GFR 91.83 (mL/min/1.73m2); Glucose 99 mg/dL (74-106); Potassium 4.2 mmol/L (3.5-5.1); Sodium 138 mmol/L (136-145)
== END 2024-07-26 19:13 | disposition home or self-care (01) ==
LOC: LBN 19:12
PROVIDERS: PCP Nurse Practitioner Family; Visit Provider Student in an Organized Health Care Education/Training Program
DX: M17.11 Unilateral primary osteoarthritis, right knee (principal); Z01.818 Encounter for other preprocedural examination
CPT/HCPCS: 80048; 85027

== ENCOUNTER 2024-08-11 09:01 | Day surgery (SDC) | payer MEDICARE, SELFPAY ==
[2024-08-11] VITALS (17 sets, daily range): BP systolic 97–152; BP diastolic 57–133; PULSE 68–94; RESP 13–24; TEMP 36–36.5; O2SAT 95–100; BMI 28.8
--- NOTE | 2024-08-11 07:23 | PDOC.DSDIS_ITS ---
Date of service: 08/11/24 Discharge Plan Disposition Patient Disposition: Home Condition: Good Discharge Details Reason For Visit: R TKR Attending Provider: Edmar Lee Primary Care Provider: Nichole Olsen Home Meds and New Rx's Prescriptions: New acetaminophen 500 mg tablet 1,000 mg PO TID Qty: 90 3RF aspirin 81 mg tablet,delayed release (DR/EC) 81 mg PO BID Qty: 60 0RF celecoxib 200 mg capsule 200 mg PO BID Qty: 60 0RF dexamethasone 4 mg tablet 4 mg PO DAILY Qty: 2 0RF docusate sodium 100 mg capsule 100 mg PO BID PRNQty: 28 0RF tramadol 50 mg tablet 50 mg PO Q4H PRNQty: 18 0RF pantoprazole 40 mg tablet,delayed release (DR/EC) 40 mg PO DAILY Qty: 14 0RF gabapentin 300 mg capsule 300 mg PO QHS Qty: 14 0RF Continued calcium carbonate [Calcium 600] 600 mg calcium (1,500 mg) tablet 600 mg PO DAILY red yeast rice 600 mg capsule 600 mg PO DAILY Rx Instructions: give with meal/snack multivitamin Tablet 1 tab PO DAILY Patient Comments: 1/2 tab new chapter nutritional supplements PO Patient Comments: 11/13/23 - New chapter zyflamel (herbal, joint relief) cholecalciferol (vitamin D3) 10 mcg (400 unit) capsule 20 mcg PO DAILY new chapter zyflamend 1 tab PO DAILY AM Patient Comments: herbal, joint relief new chapter immune support 1 tab PO DAILY Patient Comments: rejaky, corinne, mushroom blend niacinamide 500 mg capsule 500 mg PO DAILY mecobalamin (vitamin B12) 1,000 mcg tablet,chewable 1,000 mcg PO DAILY bisacodyl 5 mg tablet,delayed release (DR/EC) 5 mg PO ONCE Qty: 4 0RF Rx Instructions: Per Colonoscopy bowel prep instructions polyethylene glycol 3350 17 gram/dose powder 238 g PO ONCE Qty: 238 0RF Rx Instructions: For Colonoscopy bowel prep, as directed by office Discharge Instructions Additional Instructions: Total Knee Discharge Instructions Activity: The most important activity is to walk and to work on gentle motion (both flexion and extension). You should try to take short walks a few times a day. It is important that when resting you work on keeping the knee straight. Avoid putting a pillow behind the knee as this will encourage flexion. Work on range of motion exercises as provided by Physical Therapy. - Start outpatient physical therapy within 2 weeks. - You should wear the HERMANN hose on both legs for 2 weeks. You may remove these at night. You may also use any compression sock in place of the HERMANN hose. - Utilize [employer] to review exercises, see videos on exercises and obtain basic information pertaining to your surgery and your recovery. Dressing: Remove the Bao wrap by 2 days after your surgery and put on the HERMANN stocking given to you from the hospital. Keep the surgical dressing (underneath the BAO wrap) in place for at least one week. After the first week it may be removed and replaced with light gauze and tape or nothing. The wound and dressing may get wet after 3 days but avoid soaking the dressing or otherwise it will need to be changed. Many people prefer covering the dressing with cling wrap (saran wrap) to minimize it from getting soaked. If it gets wet, just pat dry. If it starts to peel off then it will need to be changed. Medications: - You should take Tylenol and anti-inflammatory Celebrex as your primary pain control medications. If the Celebrex is too expensive or not covered, please call the office for another alternative (Advil/Ibuprofen or Naproxen/Aleve) - You have been prescribed a stronger pain medication tramadol for breakthrough pain, take as needed as prescribed. - You have also been prescribed a stomach acid reduction agent Pantoprozole to help reduce stomach acid and reflux. - You have been prescribed Gabapentin to take at night for restlessness and nerve pain. - You will be taking Aspirin 81mg twice a day for DVT prevention unless instructed otherwise. - You have also been prescribed Decadron to take to control post-operative nausea and pain. You will start this tomorrow. - If you have constipation you should take Colace or Miralax (both [id number]). It takes most people 3-4 days to have a bowel movement. Follow-up: 2 weeks If you have any acute concerns or questions, please do not hesitate to contact the office at [phone]. You may contact Dr. Lee with any questions after hours through the hospital at [phone] or on his cell phone at [phone]. Stand Alone Forms: Anesthesia Discharge Inst., Anes.Nerve Block Instructions, Jeff Ruiz ([facility]) Referrals: Edmar Lee MD [ [facility] STAFF PHYSICIAN] - 08/26/24 10:15 am Equipment/Supplies: Walker Activity:: Activity as Tolerated Shower/Bathe:: 72 hours Diet:: As Tolerated Discharge Orders Discharge Orders: Discharge Order (Routine); Ordered 08/11/24 Ordered By: Rony Hernández DS: Diagnosis Discharge Diagnosis (1) Right knee DJD: Status: Acute
--- NOTE | 2024-08-11 09:36 | W.ANESPRE ---
General Info Date of Service Date Performed: 08/11/24 Height: 5 ft 2 in Weight: 71.5 kg Body Mass Index (BMI): 28.8 Surgical Procedure: Operation Date: 08/11/24 10:55 Proposed Procedure Side Surgeon p Knee Total Arthroplasty, Cementless CR Right Edmar Lee MD Meds Allergies and Home Medications Allergies Allergy/AdvReac Type Severity Reaction Status Date / Time oxycodone AdvReac Severe Nausea Verified 08/11/24 09:36 Home Medication ?Medication ?Instructions ?Recorded calcium carbonate (Calcium 600) 600 mg PO DAILY 08/13/18 red yeast rice 600 mg capsule 600 mg PO DAILY 09/11/23 mecobalamin (vitamin B12) 1,000 1,000 mcg PO DAILY 10/09/23 mcg chewable tablet multivitamin 1 tab PO DAILY 11/13/23 new chapter immune support 1 tab PO DAILY 11/13/23 new chapter nutritional supplements PO 11/13/23 new chapter zyflamend 1 tab PO DAILY AM 11/13/23 bisacodyl 5 mg tablet,delayed 5 mg PO ONCE Colonoscopy Bowel 04/29/24 release Prep #4 tabs polyethylene glycol 3350 17 238 g PO ONCE #238 grams 04/29/24 gram/dose oral powder cholecalciferol (vitamin D3) 10 20 mcg PO DAILY 07/26/24 mcg (400 unit) capsule niacinamide 500 mg capsule 500 mg PO DAILY 07/26/24 acetaminophen 500 mg tablet 1,000 mg (2 x 500 mg) PO TID #90 08/11/24 tabs aspirin 81 mg tablet,delayed 81 mg PO BID #60 tabs 08/11/24 release celecoxib 200 mg capsule 200 mg PO BID #60 caps 08/11/24 dexamethasone 4 mg tablet 4 mg PO DAILY #2 tabs 08/11/24 docusate sodium 100 mg capsule 100 mg PO BID PRN #28 caps 08/11/24 gabapentin 300 mg capsule 300 mg PO QHS #14 caps 08/11/24 pantoprazole 40 mg tablet,delayed 40 mg PO DAILY #14 tabs 08/11/24 release tramadol 50 mg tablet 50 mg PO Q4H PRN #18 tabs 08/11/24 Current Visit Medications: Current Medications Generic Name Dose Route Start Last Admin Trade Name Freq PRN Reason Stop Dose Admin Acetaminophen 1,000 mg 08/11/24 06:00 Acetaminophen 500 Mg Tab PO 08/11/24 23:59 PREOP MONIQUE Acetaminophen 1,000 mg 08/11/24 07:21 Acetaminophen 500 Mg Tab PO 09/10/24 07:20 TID PRN PRN Analgesia Celecoxib 400 mg 08/11/24 06:00 Celecoxib 200 Mg Cap PO 08/11/24 23:59 PREOP MONIQUE Docusate Sodium 100 mg 08/11/24 07:21 Docusate Sodium 100 Mg Cap PO 09/10/24 07:20 BID PRN PRN Constipation Gabapentin 300 mg 08/11/24 06:00 Gabapentin 300 Mg Cap PO 08/11/24 23:59 PREOP MONIQUE Ringer's Solution 1,000 mls @ 80 mls/hr 08/11/24 06:00 IV 08/11/24 23:59 INFUSION MONIQUE Cefazolin Sodium/Dextrose 2 gm in 50 mls @ 100 mls/hr 08/11/24 06:00 Ancef Duplex IVPB 08/11/24 23:59 PREOP MONIQUE Tranexamic Acid/Sodium Chloride 1,000 mg in 100 mls @ 600 mls/hr 08/11/24 06:00 IVPB 08/11/24 23:59 PREOP [facility] IV Miscellaneous Supplies 1 each 08/11/24 06:00 Iv Access IV 08/11/24 23:59 DIRECTED MONIQUE Ondansetron HCl 4 mg 08/11/24 07:21 Ondansetron 4 Mg/2 Ml Vial IVP 09/10/24 07:20 Q6H PRN PRN Nausea Polyethylene Glycol 17 gm 08/11/24 07:21 Polyethylene Glycol 3350 17 Gm Packet PO 09/10/24 07:20 BID PRN PRN Constipation Sodium Chloride 0 ml 08/11/24 06:00 Normal Saline Flush 10 Ml Syr IV 08/11/24 23:59 PRN PRN Sodium Chloride 0 ml 08/11/24 06:00 Normal Saline 10 Ml Vial IJ 08/11/24 23:59 DIRECTED PRN Sterile Water 0 ml 08/11/24 06:00 Water,Injection,Sterile 10 Ml Vial IJ 08/11/24 23:59 DIRECTED PRN Tramadol HCl 50 mg 08/11/24 07:21 Tramadol 50 Mg Tab PO 09/10/24 07:20 Q4H PRN PRN Pain Tranexamic Acid 1,300 mg 08/11/24 12:00 Tranexamic Acid 650 Mg Tab PO 08/11/24 12:01 ONCE ONE PFSH Active Problems Active Problems: Problem Status Onset Code History of total right knee replacement Acute 08/11/24 Z96.651 Villous adenoma of colon Acute D37.4 Tendinitis involving left hip abductors Acute M76.892 Right knee DJD Acute M17.11 Medical History Medical History Prolapse of anterior vaginal wall LIZ (obstructive sleep apnea) 2017-pt. states this has been corrected by surgery BCC (basal cell carcinoma of skin) Tinnitus Depression Anxiety History of ganglion cyst Right middle finger Hyperlipemia Lyme disease resolved per pt. Surgical History Surgical History History of colonoscopy (~04/2024) History of total left knee replacement (TKR) (08/18/18) Dr. Lee History of arthroscopic knee surgery History of uvulectomy Status post endoscopic carpal tunnel release bilateral History of bunionectomy History of recent maxillofacial surgery Maxillomandibular advancement surgery 02/07 for sleep apnea. Titanium plates History of tonsillectomy and adenoidectomy As a child Tobacco Smoking/Tobacco Use Status: Never Passive smoking exposure: No Alcohol Alcohol Intake: current Alcohol intake frequency: a few times a week Alcohol type: wine and hard liquor Substance Use Substance use: Never Substance use type: marijuana Details: 08/11/24: uses CBD edible chocolate, last used one week ago. Prental History Past Pregnancies Del. Date GA/Weeks # Preg Succ Route Wgt Sex Labor Lgth Anesthesia Location Prov Complic Unknown Yes vaginal 2721.554 g Female [facility], [place] Unknown Yes vaginal 2863.302 g Female [place], [place] Unknown Yes vaginal 3175.147 g Female [place], [place] Delivery Date: Last Updated by: Ghazala Rivera RN Baby born 05/1979 Delivery Date: Last Updated by: Ghazala Rivera RN Baby born 05/1983 Delivery Date: Last Updated by: Ghazala Rivera RN Baby born 10/1985 Vital Signs and Lab Results Vital Signs Most Recent Vital Signs in EMR: Most Recent Vital Signs Temp Pulse Resp BP Pulse Ox 36.4 C L 93 H 14 143/95 H 98 08/11/24 09:29 08/11/24 09:29 08/11/24 09:29 08/11/24 09:29 08/11/24 09:29 Lab Results Blood Type / Crossmatch: No Data to Display Complete Blood Count: White Blood Count 6.12 10^3/uL (4.4-10.8) 07/26/24 11:40 Red Blood Count 4.70 10^6/uL (3.93-5.22) 07/26/24 11:40 Hemoglobin 13.8 g/dL (11.2-15.7) 07/26/24 11:40 Hematocrit 42.8 % (36.0-46.0) 07/26/24 11:40 Platelet Count 385 10^3/uL (130-400) 07/26/24 11:40 Complete Metabolic Panel: Sodium 138 mmol/L (136-145) 07/26/24 11:40 Potassium 4.2 mmol/L (3.5-5.1) 07/26/24 11:40 Chloride 102 mmol/L (98-107) 07/26/24 11:40 Carbon Dioxide 27.0 mmol/L (21.0-32.0) 07/26/24 11:40 BUN 11 mg/dL (7-18) 07/26/24 11:40 Creatinine 0.7 mg/dL (0.55-1.02) 07/26/24 11:40 Est GFR (CKD-EPI 2020) 91.83 (mL/min/1.73m2) 07/26/24 11:40 Calcium 9.6 mg/dL (8.5-10.1) 07/26/24 11:40 Glucose 99 mg/dL (74-106) 07/26/24 11:40 Liver Function Panel: No Data to Display Coagulation Panel: No Data to Display Cardiac Panel: No Data to Display Arterial Blood Gas: No Data to Display Venous Blood Gas: No Data to Display Pancreas Panel: No Data to Display Thyroid Panel: No Data to Display Infectious Disease: No Data to Display Blood Cultures: No Data to Display Toxicology Panel: No Data to Display Anesthesia Assessment and Plan Anesthesia History Personal History: No History of Anesthesia Complications Family History: No Family History of Anesthesia Complications Exercise Tolerance Exercise Tolerance: Metabolic Equivalents>4 Pertinent Negatives Pertinent Negatives: No Symptoms of GERD, No Major Cardiovascular Symptoms or Complaints, No Major Pulmonary Symptoms or Complaints and No History of CVA/TIA Cardiac & Pulmonary Exam Cardiac Exam: Normal S1/S2 Heart Sounds Pulmonary Exam: Clear Bilateral Breath Sounds Implantable Cardiac Device Does patient have a Pacemaker or an ICD?: No Airway Exam Known Difficult Airway: No Mallampati Class: 2 Mouth Opening: Normal (> 3cm) Thyromental Distance: Greater than 3 cm Neck Range of Motion: Full ROM Neck Circumference: Normal Teeth Condition: Normal Dentition ASA Classification ASA Score: ASA 2 Emergency Case?: No NPO Status NPO Status: NPO Clears >2 hours, Solids >8 hours Anesthesia Plan Resuscitation Status: Full Code Anesthesia Technique: Spinal Anesthesia Airway Planned: Natural Airway Pain Management: Surgeon and patient request nerve block Monitors Used: Standard Monitors
[2024-08-11] MEDS: Celecoxib 200 MG CAP 400 MG PO (09:41)
[2024-08-11] MEDS: Acetaminophen 500 MG TAB 1000 MG PO (09:42)
[2024-08-11] MEDS: Gabapentin 300 MG CAP PO (09:44)
[2024-08-11] MEDS: Lactated Ringers 1,000 ML 80 ML IV (09:57)
[2024-08-11] MEDS: ceFAZolin 2 GM/50 ML BAG IVPB (10:17)
--- NOTE | 2024-08-11 10:27 | W.PM.OP ---
Operative Note Operative Note PRE-OP DIAGNOSIS: Right Knee Osteoarthritis POST-OP DIAGNOSIS: same PROCEDURE: Right Total Knee Replacement SURGEON: Edmar Lee PROGRAMMER NUMERICAL CONTROL: Lydia Hernández ANESTHESIA TYPE: Spinal Refer to Anesthesia Record ESTIMATED BLOOD LOSS: 150 PATHOLOGY: none sent TOURNIQUET TIME: 0 COMPLICATIONS: None Patient was transported to: PACU Patient's condition: stable Implants: 1. Depuy Attune Cementless Cruciate Retaining Femoral Component, Size 5 2. Depuy Attune Cementless Fixed Bearing Tibial Component, Size 4 3. Depuy Attune 5x8mm CR/FB Poly 4. Depuy Attune Patellar Component, Size 32 Indications: I have seen Audra in clinic for symptoms of knee arthritis, confirmed with radiographic findings. She has exhausted nonoperative methods and was having significant limitations in daily function and desired better function and less pain. I discussed the technical details of a knee replacement. She has successful knee replacement on the left side. I explained the risks of the procedure to include, but not limited to, bleeding, infection, pain, stiffness, fracture, damage to nerves and vessels, damage to muscles and tendons, loosening, need for repeat procedure, blood clot and cardiopulmonary demise. Despite these risks, Audra elected to proceed. Findings: There was significant signs of arthritis throughout the knee with severe deformity of the patella with a scalloped appearance narrowing down to less than 10 mm laterally. Procedure Description: Audra was greeted in the preoperative holding area where the correct side was identified and marked. The consent was reviewed with the patient and signed. The history and physical was updated. All questions were answered. Preoperative medications were administered: Acetaminophen 1000mg, Celebrex 400mg, and Gabapentin 300mg. An adductor canal block was then administered by the anesthesia team in the DSU. Audra was taken back to the operating room. A spinal anesthestic was then administered. The patient was placed into the supine position on the operating room table. Posts were placed for positioning during the procedure. All bony prominences were well padded. Prophylactic antibiotics in the form of Cefazolin were administered. 1g of Tranxemic Acid was given intravenously within 30 minutes of incision. The right leg was then prepped with Chloraprep and draped in a standard fashion with impervious stockinette. A second prep with Chloraprep was performed prior to application of Iodine impregnated skin protection. A timeout to confirm correct identity, side and site, procedure, allergies, anesthesia, and medical concerns was performed. With the knee in some flexion, a midline incision was made overlying the knee. Full thickness skin flaps were raised once the extensor mechanism was encountered. These were raised medially and laterally. Any bleeding was controlled with electrocautery. Once the extensor mechanism was fully exposed, a medial parapatellar arthrotomy was performed in a flexed position. All bleeding from the arthrotomy and the geniculate arteries was coagulated. A medial subperiosteal peel was performed with electrocautery to the midcoronal plane. The fat pad was removed while keeping the patellar tendon protected. The anterior distal femur synovium was removed for later visualization. The ACL and PCL were resected and the anterior horn of the lateral meniscus was transected. The knee was then flexed with the patella everted. There is significant deformity about the patella with a scalloped deformity where the patella was riding lateral over the lateral femoral ridge. This was down to bone with multiple ridges and thinned out this region by less than 10 mm. Large osteophytes from the tibia were removed. Large osteophytes from the femur were removed. Using a step drill, and based on preoperative templating, the femoral canal was entered. This was done with a step drill without any difficulty. The intramedullary distal femoral cut guide was inserted, set to a 5 degree valgus cut and 9mm cut thickness. The distal femoral cut guide was then held in position and pinned. With the soft tissues protected, the distal cut was performed. This was passed over a few times to ensure a planar cut. I then turned attention to the tibia. The extramedullary guide was placed onto the leg. The distal aspect was slid medial to adjust for position of center of ankle and stay in line with shaft of the tibia. Approximately 3-5 degrees of posterior slope was kept in the proximal cutting guide. The center of the guide was aligned with the PCL. The stylus was used to assess cut thickness. This was then held in position and pinned into place with 2 additional pins and a cross pin for stability. The medial and lateral collateral ligaments were protected and the cut was performed. With this completed, it was assessed and noted to be of appropriate dimensions. The guide was removed. A spacer block was inserted and the knee was brought into extension. The 7mm spacer block provided full extension, without hyperextension and with stability of both the medial and lateral collateral ligaments was assessed. The pins from the femur and the tibia were then removed. The distal femur was then sized. The anterior stylus was placed onto the lateral ridge of the anterior femur. This indicated a size 5 femur. The external rotation of the guide was adjusted to 7 degrees to match the epicondylar axis, perpendicular to [place]?s line. The 4-in-1 cutting guide was the placed. The posterior medial femur cut was evaluated and appeared of good thickness. The spacer block was inserted underneath the cutting guide and stability was confirmed in 90 degrees of flexion. An [place] wing was used to confirm appropriate position of the anterior cut to avoid notching. This cutting guide was ensured to be flush on the cut surface and then pinned into place with headed pins. While protecting the soft tissues, quad tendon, and collateral ligaments, the anterior and posterior cuts were performed with a saw. The central two pins were removed and the posterior and anterior chamfers were cut next. The notch-cutting guide was placed. This was pinned to lateralize the femoral component as much as possible while keeping it flush on the cut surface. This was then pinned into position. A reciprocating saw was used to make the notch cut. A rasp smoothed the cut surfaces. The medial and lateral menisci were removed. A trial femoral component was then inserted, impacted down to the cut surfaces, and the lug holes were drilled. A provisional trial tibial component was placed and the knee was brought through range of motion. The polyethylene was trialed until there was good flexion and extension with excellent stability to the medial and lateral collaterals. The patella was tracking without thumbs. A size 8mm polyethylene component provided the best range of motion and stability with less than 2mm gapping with medial and lateral stress and full extension without significant hyperextension. The tibial cut surface was fully exposed. The tibia was then sized as a 4. The tibia had been previously marked during trialing to correspond to the center of the tibial component to help with rotation. The trial was aligned to this lydia, approximately rotated to the medial 1/3rd of the tibial tubercle. The trial was pinned into place. The tibia was prepared with a reamer and a keel punch and lug holes. The knee was then brought into extension and the patella was measured. His thickest point it was 22 mm. At the low point of the scalloped region it was less than 10 mm, approximately 8 although difficult to fully identify. I used the clamp to create a planar surface with about 13 mm of patella remaining. This still left an area of the lateral aspect of the patella with unresurfaced bone. I was able to position a 32 mm patella button in a slightly more medial position with all some mild overhang medially and some mild overhang of the scalloped region laterally with all 3 lug holes being drilled into the thicker host bone. The lugs were drilled. The trial components were removed. The final components were opened on the back table. The periosteal and capsular tissues, especially posteriorly, around the knee were then systematically injected with a periarticular cocktail consisting of 246mg of Ropivacaine, 0.5mg of Epinephrine, 0.08mg of Clonidine, and 30mg of Ketorolac, diluted to 100cc. On the back table, with the implants opened. The cement was mixed. One batch of high viscosity cement was prepared with vacuum assistance. After the cement was ready a small amount was placed on the cut surface of the patella and the patellar button was clamped into position and held. The cementless knee components were placed. Starting with the tibial component, the tibia was subluxed anteriorly and the lug holes of the component were lined up. The tibia was then impacted with an impactor and mallet until the tibial component was in contact with the tibia. Then, the femoral component was inserted. The lug holes were aligned and the component was impacted into position. The final polyethylene component was inserted. The knee was irrigated with Surgiphor Betadine solution. This was allowed to sit in the knee for 3 minutes and then it was irrigated out with saline. After the cement had finally cured, approximately 15min, the clamp was removed from the patella and the knee was taken through range of motion. The patella was tracking with a no-thumbs technique. The capsule was then reapproximated with a No. 1 Vicryl at multiple locations. The capsule was finally closed with a No. 2 Stratafix, barbed suture. Deep tissues were then reapproximated with 0 Vicryl and 2-0 Vicryl. The skin was closed with a running 3-0 Monocryl in a subcuticular fashion. This was reinforced with skin glue. A Mepilex silver dressing was applied along with a gmzq-[id number] MINDY wrap. A CryoCuff was applied. Audra was transferred to the hospital bed without difficulty an suffering no apparent complication. Audra has a good prognosis. Physical therapy will start today and without restrictions, weight-bearing as tolerated. Aspirin 81mg BID will be used for DVT prophylaxis. Date of Procedure: 08/11/24
[2024-08-11] MEDS: TRANEXAMIC ACID/SOD. CHL. 1,000 MG/100 ML BAG 600 MG IVPB (10:30)
--- NOTE | 2024-08-11 10:50 | W.ANESNERVE ---
Nerve Block Single Injection Procedure Date and Time Date Performed: 08/11/24 Procedure Start: 10:08 Location Where Procedure Performed Procedure Location: Day Surgery Unit Reason Performed: Postoperative Analgesia Requesting Provider: Edmar Lee Timeout Performed Timeout Performed: Yes Monitoring Used ECG, Blood Pressure, SpO2 and See EMR for corresponding vital signs Sterility Sterility: Hand Hygiene, Surgical Cap, Surgical Mask, Sterile Gloves, Sterile Drape/Sheet and Chlorhexidine Sedation Given During Procedure Sedation Given (Indicate Dose Given): No Sedation given Patient Mental Status Patient Mental Status: Awake Nerve Block 1st Nerve Block: Laterality: Right Block Type: Adductor Canal Ultrasound Image Saved?: Yes Needle / Catheter Used: 100mm SonoPlex II Local Anesthetic Bolus (Indicate Dose Given): Lidocaine used for local infiltration of skin, Injected in 3-5ml increments after negative blood aspiration, Bupivacaine 0.25% Dose:: 10 ml and Exparel Dose:: 10 ml Additives (Indicate Dose Given): None Ultrasound: Sterile probe cover and gel used Nerve Stimulator: Supplement to Ultrasound use and No twitch or parasthesia noted < 0.5 mA Paresthesia: None Procedure Tolerated: No Complications and Patient tolerated well Procedure Outcome: Successful Performed By: Naz Vargas
--- NOTE | 2024-08-11 13:45 | W.ANESPOSTOP ---
Postoperative Evaluation Date, Time and Location Date Performed: 08/11/24 Time Performed: 13:45 Patient Location: Day Surgery Unit Vital Signs Most Recent Imported Vital Signs: Most Recent Vital Signs Temp Pulse Resp BP Pulse Ox 36 C L 68 14 116/74 99 08/11/24 12:58 08/11/24 12:58 08/11/24 12:58 08/11/24 12:58 08/11/24 12:58 Pain Score Most Recent Pain Score: Most Recent Pain Score Pain Level 0 08/11/24 12:58 Assessment Mental Status: Awake (Alert & Oriented to Patient Baseline) Airway and Respiratory Function: Patent airway with normal (patient baseline) respiratory exam Cardiovascular Function: Hemodynamically Stable Hydration Status: Adequately Hydrated Nausea & Vomiting: No Nausea or Vomiting Pain: Pt. Denies Any Pain Peripheral Nerve Block: Patient did not receive a nerve block Postoperative Comments:: working with PT and denying pain
--- NOTE | 2024-08-11 14:06 | IN_ITS ---
PT Notes Visit Reasons: R TKR Physical Therapy Day Surgery Initial Evaluation Date: 08/11/2024 Referring Doctor: JUNI Herrera/Dr. Lee PT Orders: PT CONSULT: Status post Ortho surgery Precautions: WBAT RLE Patient Profile/Admitting Diagnosis: Audra is a 74-year-old female presenting status post elective right TKA by Dr. Lee on 08/11/2024. Postop uncomplicated PMHX: Prolapse of anterior vaginal wall LIZ (obstructive sleep apnea)2017-pt. states this has been corrected by surgery BCC (basal cell carcinoma of skin) Tinnitus Depression Anxiety History of ganglion cyst Right middle finger Hyperlipemia Lyme disease resolved per pt. Surgical History (Updated 05/14/24 @ 08:02 by Melina Mcdaniels) History of colonoscopy (~04/2024) History of total left knee replacement (TKR) (08/18/18)Dr. Lee History of arthroscopic knee surgery History of uvulectomy Status post endoscopic carpal tunnel release bilateral History of bunionectomy History of recent maxillofacial surgery Maxillomandibular advancement surgery 02/07 for sleep apnea. Titanium plates History of tonsillectomy and adenoidectomy As a child Social History/Home Situation: Patient resides in two-story home 2 steps to enter and flight of stairs to second-floor. She reports she takes tub baths at home. She is independent without a device for ambulation. 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 Patient independent meal prep independent shopping positive driving. 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 She reports she has been practicing yoga for 40 years. Patient requesting to take bath at home and keep leg elevated on edge of tub. PT and nurse educated patient not to take bath at this time per post surgical instructions. Objective: [] General Observation: Female semireclined on stretcher Cryo/Cuff to right knee has been present. Patient very animated. Mental Status: Alert and oriented x 4, impulsive, easily distracted, tangential. Patient agreeable to participate in evaluation Pain: 2/10 right knee ROM: [] BUE : WNL Right Lower Extremity: knee 0-100 degrees hip and ankle within normal limits Left Lower Extremity: knee 0-128 degrees hip and ankle within normal limits Strength: [] Right Upper Extremity: 5/5 Left Upper Extremity: 5/5 Right Lower Extremity:Hip flexion: 3 -/5; hip abduction: 3 -/5; hip extension: 3 -/5; knee extension: 3/5; knee flexion: 2+/5 ankle DF: 3/5 ; ankle PF: 3/5; patient demonstrates quad set and straight leg raise without lag in shortened range. Patient required cues during ambulation and stairs for quad activation during single limb tasks initially Left Lower Extremity: 5/5 Sensation: Intact Bed Mobility/Transfers: [] Supine to sit independent Sit to stand independent Stand to sit independent Bed to chair supervision with FWW Gait: Patient ambulated 160 feet SBA with FWW reciprocal pattern intermittent cues initially for activation of quad during stance Stairs: 5 steps with 1 rail x 2 trials with standby assist and cues for sequencing and to slow rate as patient impulsive. Balance: Static Sitting: Normal Dynamic Sitting: Normal Static Standing: Good plus Dynamic Standing: Good Special Tests: [] Mobility Limitations Standardized Measure [] [facility] AM-PAC 6 clicks Basic Mobility Inpatient Short Form: [] Raw Score: 23 CMS Score:11.20% Informed Consent/Education: Patient instructed in purpose of PT consult. Packet containing TKA exercise protocol has been given to patient. Education and training on initial set of exercises that can be done at home have been completed with patient. Treatment: functional mobility with FWW supervision with cues for safety and to stay with FWW as approach surfaces. Pt impulsivity , and easily distracted. Stairs 10 steps with 1 rail step to pattern with SBA and cues for sequencing d/t impulsivity Assessment: Patient presents with clinical signs and symptoms consistent with current/admitting diagnoses that have resulted to mobility limitations, gait instability, generalized weakness, and impairment of motor control as demonstrated by the following impairment level findings: 1. Decreased strength to right knee major muscle groups 2. Impaired standing balance 3. Limitation of joint range of motion in right knee 4. Pain right knee 5. impulsivity 6. impaired functional activity tolerance Impairments are contributing to the following functional limitations: 1. Inability to safely ambulate without assistive device 2. Increase completion time for mobility ADL performance 3. Increased fall risk 4. difficulty performing stairs independently Patient is assessed as a low complexity based on the following: History: 74-year-old female with impairment level findings, functional limitations, and past medical history as indicated above Examination: Demonstrable impairment in strength, balance, and mobility level with underlying impairments and functional limitations as documented above Presentation: stable Decision Making: low Goals: N/A. PT evaluation and 1-2 treatment sessions only for functional mobility training using recommended AD and for HEP instruction. Plan of Care/Treatment Plan: N/A. PT evaluation and 1-2 treatment session only for functional mobility training using recommended AD and for HEP instruction. DISCHARGE RECOMMENDATIONS: Home with HEP and outpatient PT as scheduled TREATMENT CODE/TIME: 15126,14216/ [id number] Thank you for the opportunity to participate in the care of this patient. Cailin Mcguire, PT [facility]
== END 2024-08-11 14:25 | disposition home or self-care (01) ==
LOC: SUR 09:01
PROVIDERS: PCP Nurse Practitioner Family; Visit Provider Student in an Organized Health Care Education/Training Program
PROC: (CPT 27447; principal; 2024-08-11 10:45)
DX: M17.11 Unilateral primary osteoarthritis, right knee (principal); G89.18 Other acute postprocedural pain
CPT/HCPCS: 27447; 64447; 97161; 97530; C1776; J0665; J0666; J0690; J1100; J2250; J2371; J2401; J2405; J2704

== ENCOUNTER 2024-08-26 10:22 | Outpatient (CLI) | payer MEDICARE, SELFPAY ==
--- NOTE | 2024-08-26 10:15 | DI.RAD_ITS ---
Exam(s) XR KNEE RT 1V XR STANDING ALIGNMENT EXAM: XR STANDING ALIGNMENT and XR knee RT 1 V CLINICAL HISTORY: 1ST POST OP S/P R TKA. TECHNIQUE: 2D digital imaging was performed. Four images were obtained. COMPARISON: CR XR KNEE LEFT 1-2 VIEWS from 10/28/2023 CR XR KNEE RIGHT 4 OR MORE VIEWS from 10/28/2023 CR XR STANDING ALIGNMENT from 07/26/2024 FINDINGS: BONES: There is a mild right convex curvature of the lumbar spine. Degenerative changes are seen in the lumbar spine. The hips are well maintained. There is a stable old left total knee arthroplasty. Since the prior examination, there has been placement of a right total knee arthroplasty. Orthoped ic hardware appears in good position. No suspicious lucencies are seen in or about the orthopedic bone rdware. The ankles are well maintained.The left lower extremity is 1.2 cm longer than the right lowe r extremity. SOFT TISSUE: Normal. IMPRESSION: Interval placement of a right total knee arthroplasty. DATA REPOSITORY: RADIATION DOSE DELIVERED:
== END 2024-08-26 10:23 | disposition home or self-care (01) ==
LOC: DIORS 10:23
PROVIDERS: PCP Nurse Practitioner Family; Referring Provider Nurse Practitioner Family; Visit Provider Student in an Organized Health Care Education/Training Program
DX: Z96.651 Presence of right artificial knee joint (principal); Z47.1 Aftercare following joint replacement surgery; M25.561 Pain in right knee
CPT/HCPCS: 99213; 73560; 77073

== ENCOUNTER → 2024-09-23 10:34 | Outpatient (BNVA) | payer MEDICARE, MEDICAID, SELFPAY | PROVIDERS: PCP Nurse Practitioner Family; Visit Provider Physician Assistant | DX: Z47.1 Aftercare following joint replacement surgery (principal); Z96.651 Presence of right artificial knee joint | CPT/HCPCS: 99024 ==

== ENCOUNTER → 2025-03-08 00:37 | Outpatient (CLI) | payer MEDICARE, MEDICAID, SELFPAY ==
--- NOTE | 2025-03-08 12:55 | DI.MAMMO_ITS ---
Exam(s) MAMMO SCREENING EXAM: MAMMO SCREENING CLINICAL HISTORY: SCREENING MAMMO Z12.31 TECHNIQUE: Bilateral full field digital CC and MLO mammographic images were obtained with 3D tomosynthesis and utilizing computer aided detection (CAD). COMPARISON: Comparison is made with prior examinations. FINDINGS: Masses/Architectural Distortion: No suspicious masses or areas of architectural distortion are present. There are stable bilateral breast nodules. Microcalcifications: No suspicious pleomorphic-type are seen. Skin Thickening/Nipple Retraction: None. IMPRESSION: 1. No significant interval change with no specific features of malignancy noted. 2. Unless there is more urgent need, screening mammography is recommended, as per [place] [employer] guidelines. BI-RADS Category 2 - Benign Findings Breast Density - Category B - There are scattered areas of fibroglandular density. Breast density Category C or D implies that the patient has dense breast tissue. Dense breast tissue can make it harder to find cancer on a mammogram. Dense breast tissue is also associated with an increased risk of breast cancer. This information about the result of the mammogram report was provided to the patient to raise their awareness. Use this report when you speak with the patient about their risks for breast cancer, which includes their family history. At that time, you may recommend additional screening tests (Ultrasound or MRI) as these tests may add significant information. A negative radiographic report should not delay biopsy if a dominant or clinically suspicious mass is present. Up to ten percent of cancers are not identified on mammography. A negative report may reinforce clinical impression. Adenosis and dense breasts may obscure an underlying neoplasm. False positive reports average 6 to 10%. Patient will receive a letter notifying them of these results.
== END ==
PROVIDERS: PCP Nurse Practitioner Family; Visit Provider Nurse Practitioner Family
DX: Z12.31 Encounter for screening mammogram for malignant neoplasm of breast (principal)
CPT/HCPCS: 77063; 77067